=== PATIENT | female | born 1940 | race Caucasian/White ===

== ENCOUNTER 2016-04-23 10:25 | Outpatient (CLI) | payer MEDICARE ==
[2016-04-23 12:29] LABS: ALT (SGPT) 34 U/L (0-55); AST (SGOT) 28 U/L (5-34); Alkaline Phosphatase 102 U/L (40-150); Anion Gap 14 mmol/L (10-20); BUN (Urea Nitrogen) 12 mg/dL (9.8-20.1); Bilirubin, Direct 0.5 mg/dL (0.1-0.3); Bilirubin, Total 1.5 mg/dL (0.2-1.2); Calc. Creatinine Clearance 0 mL/min (70-130); Calcium 9.3 mg/dL (7.8-10.44); Carbon Dioxide 27 mmol/L (23-31); Chloride 101 mmol/L (98-107); Estimated GFR-MDRD 68; LDL Cholesterol, Calculated 80 mg/dL; Protein, Total 6.6 g/dL (5.8-8.1)
[2016-04-23 12:38] LABS: Bilirubin Negative (Negative); Blood, Urine Negative (Negative); Glucose, Urine (Dipstick) Negative (Negative); Ketone, Urine Trace mg/dL (Negative); Nitrite Negative (Negative); Protein, Urine (Dipstick) Negative (Neg-Trace)
[2016-04-23 12:45] LABS: Hemoglobin A1c 4.9 % (4.0-6.0)
[2016-04-23 12:50] LABS: Bacteria/HPF Rare-Few HPF (None Seen); RBC/HPF None Seen HPF (0-3); Squamous Epithelial 0-3 HPF (0-3)
[2016-04-23 13:10] LABS: #Basophils 0.1 thou/uL (0.0-0.2); #Eosinphils 0.2 thou/uL (0.0-0.7); #Lymphocytes 1.8 thou/uL (1.20-3.40); #Monocytes 0.5 thou/uL (0.11-0.59); #Neutrophils 2.6 thou/uL (1.40-6.50); %Basophils 1.1 % (0.0-1.0); %Eosinophils 3.5 % (0.0-10.0); %Lymphocytes 35.3 % (21.0-51.0); %Monocytes 9.6 % (0.0-10.0); Hematocrit 42.9 % (36.0-47.0); Mean Platelet Volume 6.3 fL (7.4-10.4); Red Blood Cell (RBC) Count 4.28 mill/uL (4.20-5.40); White Blood Cell (WBC) Count 5.1 thou/uL (4.8-10.8)
== END 2016-04-23 10:26 | disposition home or self-care (01) ==
LOC: NAVSJIPCSP 10:25
PROVIDERS: ATTEND Family Medicine
DX: N39.0 Urinary tract infection, site not specified (principal); D64.9 Anemia, unspecified; R94.5 Abnormal results of liver function studies; E78.5 Hyperlipidemia, unspecified; Z79.899 Other long term (current) drug therapy
CPT/HCPCS: 36415; 80048; 80061; 80076; 81003; 81015; 83036; 84443; 85025

== ENCOUNTER 2016-05-18 16:29 | Outpatient (CLI) | payer MEDICARE ==
[2016-05-18 16:48] LABS: Bilirubin Negative (Negative); Blood, Urine Negative (Negative); Glucose, Urine (Dipstick) Negative (Negative); Ketone, Urine Negative (Negative); Nitrite Negative (Negative); Protein, Urine (Dipstick) Negative (Neg-Trace); Urobilinogen 0.2 mg/dL (0.2-1.0)
[2016-05-18 16:59] LABS: Bacteria/HPF 2+ HPF (None Seen); RBC/HPF None Seen HPF (0-3)
== END 2016-05-18 16:30 | disposition home or self-care (01) ==
LOC: NAVSJIPCSP 16:29 → NAV LAB 16:30
PROVIDERS: ATTEND Family Medicine
DX: N39.0 Urinary tract infection, site not specified (principal)
CPT/HCPCS: 81003; 81015

== ENCOUNTER 2017-12-29 16:33 | Inpatient (IN) | payer MEDICARE ==
[2017-12-29 17:44] VITALS: BMI 44.8
[2017-12-29] MEDS ORDERED: PROVENTIL INHALER 6.7 G (200 INHALATIONS) INH PRN (17:53)
[2017-12-29] MEDS ORDERED: CRANBERRY EXTRACT 200 MG PO PRN (18:30)
[2017-12-29] MEDS: Mometasone/Formoterol 60 PUFF AER INH SCH (19:05)
[2017-12-29] MEDS ORDERED: Rivaroxaban 10 MG TAB PO SCH (21:00)
[2017-12-29] MEDS: DULoxetine 30 MG CAP PO SCH (21:16)
[2017-12-29] MEDS: Potassium Chloride 20 MEQ TAB PO SCH (21:16)
[2017-12-29] MEDS: Pramipexole Di-HCl 0.25 MG TAB PO SCH (21:17)
[2017-12-29] MEDS: Metoprolol Tartrate 25 MG TAB PO SCH (21:17)
[2017-12-29] MEDS: Atorvastatin Calcium 20 MG TAB PO SCH (21:17)
[2017-12-29] MEDS: Ciprofloxacin 500 MG TAB PO SCH (21:17)
[2017-12-29] MEDS: Amiodarone 200 MG TAB PO SCH (21:17)
[2017-12-29] MEDS: Ondansetron ODT 4 MG TAB PO PRN (22:13)
[2017-12-29] MEDS: Colchicine 0.6 MG TAB PO SCH (22:13)
--- NOTE | 2017-12-29 23:08 | HP ---
DATE OF ADMISSION: 12/29/2017 PATIENT OF: Negrito Elias MD CHIEF COMPLAINT: Severe weakness, shortness of breath, atrial fibrillation, and COPD. HISTORY OF PRESENT ILLNESS: The patient is a very pleasant 77-year-old white female with a long hist ory of COPD and atrial fibrillation with gradually increasing shortness of breath, who has been able to live independently up until approximately a month ago when she developed severe dizziness secondar y to otitis and vertigo. She was treated orally, but continued to have problems with weakness, dizzi ness, and increasing shortness of breath. She was seen by our Cardiology, who has felt that possibly her atrial fibrillation in addition to her COPD was causing her decreased exercise tolerance and she was elected to have an ablation. This was attempted on 12/23/2017 with only transient resolution of her atrial fibrillation and then recurrence, requiring institution of amiodarone therapy. This did convert her to normal sinus rhythm, but subsequently she became severely weak after being given a dos e of Ambien, developed an exacerbation of her COPD, as well as possible left upper lobe pneumonia. S he was started on Levaquin in addition to her nebulizer and appeared to slowly improve, but remained unable to maintain ADLs, and therefore was transferred to [facility] for continue d PT and OT. PAST MEDICAL HISTORY: As mentioned above is positive for a long-term atrial fibrillation; hypertensi on; COPD; obesity with a BMI of 44; and a peripheral neuropathy, not related to diabetes; as well as obstructive sleep apnea. 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 SOCIAL HISTORY: She is a . Lived with a smoker for many years, but never did smoke. ALLERGIES: She is allergic to NEXIUM, MAGNESIUM, CHLORPROMAZINE. PAST SURGICAL HISTORY: Positive for cholecystectomy, appendectomy, bilateral knee replacements, hyst erectomy, bunionectomy. MEDICATIONS: Her medications this time on transfer from [facility] included albuterol inhaler as n eeded, atorvastatin 20 daily, Dymista 23-gram spray pump each naris daily, Symbicort 160/4.5 two puff s twice daily, amiodarone 200 mg 3 times daily, colchicine 0.6 twice daily, furosemide 40 daily, pant oprazole 40 daily, K-Dur 20 daily, tramadol as needed, Xarelto 20 mg nightly, pramipexole 0.25 nightl y, KCl 10 mEq daily. Metoprolol and digoxin were given postoperatively and Cipro has been given for possible pneumonia. REVIEW OF SYSTEMS: HEENT: She has decreased hearing, but no change in vision. She does not normall y wear oxygen. She is on oxygen at this time. She has no hoarseness, sore throat. Pulmonary: She has shortness of breath on minimal exertion. She walks with a walker. Had been doing aqua therapy p rior to this admission because of low back pain and shortness of breath. Cardiovascular: She is den alice chest pain, palpitations, orthopnea, paroxysmal nocturnal dyspnea, edema, but does have palpitat ions. Gastrointestinal: She denies nausea, vomiting, diarrhea, constipation, abdominal pain. Genit ourinary: She denies dysuria, hematuria. She does have significant incontinence. Has been using ex ternal catheter. Musculoskeletal: She denies stiffness or swelling in her joints or extremities, bu t does have significant lower back pain. Neurologic: She has some mild right-sided weakness. PHYSICAL EXAMINATION: GENERAL: The patient is an obese white female, appears short of breath with minimal exertion. She i s oriented x3 and cooperative. Has decreased hearing. VITAL SIGNS: Blood pressure of 190/76, O2 sats 94% on 2 liters, respirations 20, pulse 59, afebrile. HEENT: Pupils are equal, round, and reactive to light and accommodation. Sclerae are anicteric. Co njunctivae are pale. Oral mucous membranes are well-hydrated. Ears showed bilateral crusting, but w ith no real tenderness around the ears. NECK: Supple. There are no nodes or masses. JVP is not elevated. LUNGS: Markedly decreased breath sounds with decreased air flow. No wheezes or rhonchi. CARDIAC: Regular rhythm. PMI in the fifth intercostal space midclavicular line. No S4. No other g allops or murmurs. ABDOMEN: Obese and nontender with no masses or organomegaly. SKIN AND EXTREMITIES: Display 1+ edema. No clubbing, cyanosis. NEUROLOGIC: Decreased sensation to pinprick bilaterally in the feet and mild right-sided weakness. LABORATORY AND X-RAY FINDINGS: Most recent laboratory showed white count of 6100, hematocrit 34, hem oglobin 11. Sodium 134, potassium 4, chloride 100, bicarbonate 26, BUN 18, creatinine 0.98, calcium 9, magnesium 1.9. TSH 1.88, T4 of 1.14, total bilirubin 1.3, AST 29, ALT 30. Echocardiogram showed ejection fraction 55%-60%, small pericardial effusion, no evidence of tamponade. CT of the chest anel wed no significant pericardial effusion, very small bilateral pleural effusions. ASSESSMENT: The patient is a 77-year-old white female with a history of hypertension, well controlle d; chronic obstructive pulmonary disease secondary to secondary smoke with significant dyspnea on min imal exertion and now at rest; atrial fibrillation, status post ablation, but with persistent diastol ic heart failure; severe deconditioning with inability to ambulate without assistance and with dyspne a on minimal exertion. PLAN: 1. Start PT/OT. 2. Attempt to wean off oxygen. Continue prehospitalization medications of Symbicort, albuterol, cip rofloxacin for COPD. 3. Continue metoprolol 25 twice daily, duloxetine 60 nightly, digoxin 0.125 daily, and colchicine 0. 6 twice daily for hypertension and to control atrial fibrillation and decrease inflammatory response in pericardium. 4. Stress ulcer prophylaxis. Continue full-dose anticoagulation with rivaroxaban 20 mg nightly.
[2017-12-30 05:03] LABS: #Basophils 0.1 thou/uL (0.0-0.2); #Eosinphils 0.3 thou/uL (0.0-0.7); #Lymphocytes 1.4 thou/uL (1.20-3.40); #Monocytes 1.2 thou/uL (0.11-0.59); #Neutrophils 5.4 thou/uL (1.40-6.50); %Basophils 1.1 % (0.0-1.0); %Eosinophils 3.6 % (0.0-10.0); %Lymphocytes 16.4 % (21.0-51.0); %Monocytes 13.9 % (0.0-10.0); %Neutrophils 65.1 % (42.0-75.0); Hemoglobin 10.3 g/dL (12.0-16.0); Mean Corpuscular HGB CONC 32.9 g/dL (32.0-36.0); Mean Corpuscular Hemoglobin 31.8 pg (27.0-31.0); Mean Corpuscular Volume 96.8 fL (78.0-98.0); Mean Platelet Volume 7.6 fL (7.4-10.4); Platelet Count 280 thou/uL (130-400); RBC Distribution Width 12.8 % (11.5-14.5); Red Blood Cell (RBC) Count 3.24 mill/uL (4.20-5.40); White Blood Cell (WBC) Count 8.4 thou/uL (4.8-10.8)
[2017-12-30 05:06] LABS: Manual Diff?? NO
[2017-12-30 05:07] LABS: MDiff Complete? YES
[2017-12-30 05:23] LABS: ALT (SGPT) 51 U/L (8-55); AST (SGOT) 37 U/L (5-34); Albumin 3.6 g/dL (3.4-4.8); Alkaline Phosphatase 191 U/L (40-150); Anion Gap 14 mmol/L (10-20); BUN (Urea Nitrogen) 19 mg/dL (9.8-20.1); Bilirubin, Total 1.1 mg/dL (0.2-1.2); Calc. Creatinine Clearance 81 mL/min (70-130); Calcium 9.5 mg/dL (7.8-10.44); Carbon Dioxide 26 mmol/L (23-31); Chloride 98 mmol/L (98-107); Estimated GFR-MDRD 51; Globulin 2.5 g/dL (2.4-3.5); Glucose 115 mg/dL (83-110); Potassium 4.3 mmol/L (3.5-5.1); Protein, Total 6.1 g/dL (6.0-8.3); Sodium 134 mmol/L (136-145)
[2017-12-30] MEDS: Mometasone/Formoterol 60 PUFF AER INH SCH ×2 (06:16→17:47)
[2017-12-30] MEDS: Ondansetron ODT 4 MG TAB PO PRN ×3 (06:19→20:19)
[2017-12-30] MEDS: Furosemide 40 MG TAB PO SCH (07:41)
[2017-12-30] MEDS: Colchicine 0.6 MG TAB PO SCH ×2 (10:27→20:22)
[2017-12-30] MEDS: Potassium Chloride 20 MEQ TAB PO SCH ×2 (10:28→20:19)
[2017-12-30] MEDS: Digoxin 0.125 MG TAB PO SCH (10:29)
[2017-12-30] MEDS: Metoprolol Tartrate 25 MG TAB PO SCH ×2 (10:33→20:20)
[2017-12-30] MEDS: Ciprofloxacin 500 MG TAB PO SCH ×2 (10:33→20:21)
[2017-12-30] MEDS: Amiodarone 200 MG TAB PO SCH ×3 (10:33→20:20)
[2017-12-30] MEDS: Acetaminophen 325 MG TAB PO PRN (16:08)
[2017-12-30] MEDS: Rivaroxaban 10 MG TAB PO SCH (17:48)
[2017-12-30] MEDS: Lisinopril 10 MG TAB PO SCH (20:21)
[2017-12-30] MEDS: Pramipexole Di-HCl 0.25 MG TAB PO SCH (20:21)
[2017-12-30] MEDS: DULoxetine 30 MG CAP PO SCH (20:22)
[2017-12-30] MEDS: Atorvastatin Calcium 20 MG TAB PO SCH (20:23)
--- NOTE | 2017-12-30 20:57 | PRG ---
DATE OF SERVICE: 12/30/2017 SUBJECTIVE: The patient has been cooperating with therapy, walking 50 feet today, but has had recurr ent nausea and headache and has had some mild loose stools. Denying any chest pain or heart palpitat ions. LABORATORY DATA: White count 8400, hematocrit 31, hemoglobin 10. Sodium 134, potassium 4.3, chlorid e 98, bicarbonate 26, BUN 19, creatinine 1.04, glucose 115, total bilirubin 1.1, AST 37, ALT 51, jeff line phosphatase 191. OBJECTIVE: VITAL SIGNS: O2 sats 94% on 2 liters, pulse 53 and regular, blood pressure 160/76. LUNGS: Clear with decreased breath sounds. CARDIAC: Shows regular rhythm, no S4. No gallops or murmurs. ABDOMEN: Obese and nontender. SKIN AND EXTREMITIES: Showed trace edema. NEUROLOGIC: Shows diffuse weakness. ASSESSMENT: 1. Resolved atrial fibrillation on amiodarone with sinus bradycardia. 2. Persistent hypertension on metoprolol and we will add lisinopril 10 mg nightly. 3. Severe deconditioning while cooperating with therapy. 4. Severe chronic obstructive pulmonary disease, stable on hand held nebulizers and will continue.
[2017-12-31] MEDS: Mometasone/Formoterol 60 PUFF AER INH SCH ×2 (06:30→17:39)
[2017-12-31] MEDS: Ondansetron ODT 4 MG TAB PO PRN ×3 (07:30→20:30)
[2017-12-31] MEDS: Furosemide 40 MG TAB PO SCH (07:32)
[2017-12-31] MEDS: Ciprofloxacin 500 MG TAB PO SCH ×2 (09:35→20:31)
[2017-12-31] MEDS: Metoprolol Tartrate 25 MG TAB PO SCH ×2 (09:35→20:32)
[2017-12-31] MEDS: Amiodarone 200 MG TAB PO SCH ×3 (09:35→20:31)
[2017-12-31] MEDS: Colchicine 0.6 MG TAB PO SCH ×2 (09:35→20:31)
[2017-12-31] MEDS: Potassium Chloride 20 MEQ TAB PO SCH ×2 (09:35→20:31)
[2017-12-31] MEDS: Acetaminophen 325 MG TAB PO PRN ×2 (09:35→17:38)
[2017-12-31] MEDS: Digoxin 0.125 MG TAB PO SCH (09:35)
[2017-12-31] MEDS: Rivaroxaban 10 MG TAB PO SCH (17:38)
[2017-12-31] MEDS: Atorvastatin Calcium 20 MG TAB PO SCH (20:31)
[2017-12-31] MEDS: DULoxetine 30 MG CAP PO SCH (20:31)
[2017-12-31] MEDS: Lisinopril 10 MG TAB PO SCH (20:32)
[2017-12-31] MEDS: Pramipexole Di-HCl 0.25 MG TAB PO SCH (20:32)
[2018-01-01] MEDS: Mometasone/Formoterol 60 PUFF AER INH SCH ×2 (06:18→17:22)
[2018-01-01] MEDS: Furosemide 40 MG TAB PO SCH (07:43)
[2018-01-01] MEDS: Ondansetron ODT 4 MG TAB PO PRN ×2 (07:44→20:08)
[2018-01-01] MEDS ORDERED: Loperamide HCl 2 MG CAP PO PRN ×2 (09:27→10:21)
[2018-01-01] MEDS: Metoprolol Tartrate 25 MG TAB PO SCH ×2 (09:53→20:10)
[2018-01-01] MEDS: Ciprofloxacin 500 MG TAB PO SCH ×2 (09:53→20:09)
[2018-01-01] MEDS: Potassium Chloride 20 MEQ TAB PO SCH (09:53)
[2018-01-01] MEDS: Amiodarone 200 MG TAB PO SCH ×3 (09:53→20:10)
[2018-01-01] MEDS: Colchicine 0.6 MG TAB PO SCH ×2 (09:53→20:10)
[2018-01-01 10:04] LABS: Digoxin 0.53 ng/mL (0.8-2.0)
[2018-01-01 10:05] LABS: Anion Gap 15 mmol/L (10-20); BUN (Urea Nitrogen) 15 mg/dL (9.8-20.1); Calc. Creatinine Clearance 88 mL/min (70-130); Calcium 9.3 mg/dL (7.8-10.44); Carbon Dioxide 22 mmol/L (23-31); Chloride 100 mmol/L (98-107); Estimated GFR-MDRD 57; Glucose 140 mg/dL (83-110); Potassium 3.5 mmol/L (3.5-5.1); Sodium 133 mmol/L (136-145)
[2018-01-01] MEDS: Digoxin 0.125 MG TAB PO SCH (10:35)
[2018-01-01] MEDS: Acetaminophen 325 MG TAB PO PRN (10:37)
--- NOTE | 2018-01-01 15:01 | PRG ---
DATE OF SERVICE: 01/01/2018 SUBJECTIVE: Ms. Rasheed is doing well except she did have about 3 episodes of diarrhea last night a nd one this morning. Stool was sent for C. diff and she was given one dose of Imodium and it seems t o be helping. No other concerns or questions except she hates her potassium pill. She agrees to jailene e it in the liquid form. OBJECTIVE: VITAL SIGNS: She is afebrile, heart rate is 57, respirations 20, oxygen saturation 94% on 2 liters, blood pressure 139/66. CARDIOVASCULAR SYSTEM: S1, S2 plus. RESPIRATORY SYSTEM: Normal vesicular breath sounds. ABDOMEN: Soft, nontender, bowel sounds heard in all quadrants, obese. EXTREMITIES: Without cyanosis or clubbing. Trace edema. LABORATORY DATA: Sodium is 133, potassium 3.5, BUN and creatinine is 15 and 0.95, digoxin is 0.53. IMPRESSION: 1. Atrial fibrillation, now in sinus rhythm. 2. Chronic obstructive pulmonary disease, now requiring oxygen. 3. Hypertension, well controlled. 4. Peripheral neuropathy. 5. Obstructive sleep apnea. 6. History of cerebrovascular accident in the past with minimal right-sided deficits. PLAN: 1. Change potassium to liquid form. 2. Continue current medications. 3. Heart healthy diet. 4. Monitor heart rate and rhythm. 5. Titrate oxygen. 6. Breathing treatment. 7. Nocturnal CPAP. 8. Routine laboratory values. 9. Discussed with nursing in detail. All questions answered.
[2018-01-01] MEDS: Rivaroxaban 10 MG TAB PO SCH (17:21)
[2018-01-01] MEDS: Lisinopril 10 MG TAB PO SCH (20:09)
[2018-01-01] MEDS: Pramipexole Di-HCl 0.25 MG TAB PO SCH (20:10)
[2018-01-01] MEDS: Atorvastatin Calcium 20 MG TAB PO SCH (20:10)
[2018-01-01] MEDS: DULoxetine 30 MG CAP PO SCH (20:10)
[2018-01-02] MEDS: Mometasone/Formoterol 60 PUFF AER INH SCH ×2 (05:46→17:47)
[2018-01-02] MEDS: Furosemide 40 MG TAB PO SCH (07:48)
[2018-01-02] MEDS: Ondansetron ODT 4 MG TAB PO PRN ×2 (07:48→20:17)
[2018-01-02] MEDS: Colchicine 0.6 MG TAB PO SCH ×2 (09:14→20:19)
[2018-01-02] MEDS: Amiodarone 200 MG TAB PO SCH ×3 (09:14→20:18)
[2018-01-02] MEDS: Ciprofloxacin 500 MG TAB PO SCH ×2 (09:14→20:18)
[2018-01-02] MEDS: Metoprolol Tartrate 25 MG TAB PO SCH ×2 (09:15→20:20)
[2018-01-02] MEDS: Digoxin 0.125 MG TAB PO SCH (09:15)
[2018-01-02] MEDS: Rivaroxaban 10 MG TAB PO SCH (17:12)
[2018-01-02] MEDS: Acetaminophen 325 MG TAB PO PRN (17:12)
[2018-01-02] MEDS: Atorvastatin Calcium 20 MG TAB PO SCH (20:19)
[2018-01-02] MEDS: DULoxetine 30 MG CAP PO SCH (20:19)
[2018-01-02] MEDS: Lisinopril 10 MG TAB PO SCH (20:20)
[2018-01-02] MEDS: Pramipexole Di-HCl 0.25 MG TAB PO SCH (20:20)
[2018-01-03] MEDS: Ondansetron ODT 4 MG TAB PO PRN ×3 (03:41→14:31)
[2018-01-03] MEDS: Mometasone/Formoterol 60 PUFF AER INH SCH ×2 (06:17→17:37)
[2018-01-03] MEDS: Furosemide 40 MG TAB PO SCH (07:39)
[2018-01-03] MEDS: Metoprolol Tartrate 25 MG TAB PO SCH ×2 (09:12→21:00)
[2018-01-03] MEDS: Ciprofloxacin 500 MG TAB PO SCH ×2 (09:12→21:00)
[2018-01-03] MEDS: Colchicine 0.6 MG TAB PO SCH ×2 (09:12→21:03)
[2018-01-03] MEDS: Amiodarone 200 MG TAB PO SCH ×3 (09:15→21:00)
[2018-01-03] MEDS: Digoxin 0.125 MG TAB PO SCH (09:15)
[2018-01-03] MEDS: Acetaminophen 325 MG TAB PO PRN (14:31)
[2018-01-03] MEDS: Rivaroxaban 10 MG TAB PO SCH (17:36)
[2018-01-03] MEDS: Lisinopril 10 MG TAB PO SCH (20:59)
[2018-01-03] MEDS: DULoxetine 30 MG CAP PO SCH (21:00)
[2018-01-03] MEDS: Pramipexole Di-HCl 0.25 MG TAB PO SCH (21:01)
[2018-01-03] MEDS: Atorvastatin Calcium 20 MG TAB PO SCH (21:01)
--- NOTE | 2018-01-03 22:24 | PRG ---
DATE OF SERVICE: 01/03/2018 HISTORY OF PRESENT ILLNESS: Ms. Rasheed is a very pleasant 77-year-old white female that awakened a bout a week and a half ago with vertigo and dizziness. She was treated but continued to have weaknes s and dizziness and developed some shortness of breath. She was evaluated by Cardiology and found to be in atrial fibrillation and along with her COPD, thought that might be the cause of her extreme we akness. She had an elective ablation, which was transient. She required amiodarone after it recurre d. This converted back to normal sinus rhythm, but she is significantly weak. She developed exacerb ation of her COPD and the left upper lobe pneumonia. She eventually was started on Levaquin and mireles sferred to [facility] for physical therapy and occupational therapy. SUBJECTIVE: The patient states she is feeling slightly better and walked but had to stop multiple ti mes to rest. She has no complaints today. PHYSICAL EXAMINATION: VITAL SIGNS: Today reveal blood pressure 130/66, pulse 55-61, respirations 20, O2 saturation 97% on room air, T-max 98.4. GENERAL: This is a well-developed, well-nourished, very pleasant, slightly obese white female in no apparent distress at this time. HEENT: Reveals normocephalic, nontraumatic cranium. The pupils are equally round. Extraocular move ments intact. Nose and throat are slightly dry, but clear. NECK: Supple, without mass, nodes or bruits. LUNGS: Chest reveals no rales, rhonchi, or wheezes. No cough is noted this time. The patient obvio usly is breathing much better than when she was admitted. CARDIOVASCULAR: Heart reveals a regular rate and rhythm, which is very distant. No S3 or S4 is note d. No murmurs, gallops or rubs are noted. ABDOMEN: Obese, soft, nontender, without organomegaly, normal bowel sounds are noted. No rebound or guarding is noted. : Deferred. EXTREMITIES: Reveal 1+ edema. No clubbing, cyanosis otherwise is noted. NEUROLOGIC: The patient is oriented to person, place, and time at this time. IMPRESSION: 1. Hypertension. 2. Chronic obstructive pulmonary disease. 3. Atrial fibrillation, recently cardioverted, ablated and now on amitriptyline. 4. Diastolic heart failure. 5. Generalized weakness. 6. Anemia. 7. History of multiple urinary tract infections. 8. Hyperlipidemia. 9. Reflux. 10. Rheumatoid arthritis. 11. Anxiety depressive disorder. 12. Generalized weakness. PLAN: 1. Continue physical therapy and occupational therapy. 2. Wean the patient off her oxygen as well as possible. 3. Stop Colchicine 0.6 mg a day. 4. Continue other medications. 5. Follow the patient to make sure she does not develop diarrhea from the Colchicine.
[2018-01-04] MEDS: Ondansetron ODT 4 MG TAB PO PRN ×2 (03:55→20:46)
[2018-01-04] MEDS: Mometasone/Formoterol 60 PUFF AER INH SCH ×2 (06:23→18:15)
[2018-01-04] MEDS: Amiodarone 200 MG TAB PO SCH ×3 (08:24→20:43)
[2018-01-04] MEDS: Furosemide 40 MG TAB PO SCH (08:24)
[2018-01-04] MEDS: Ciprofloxacin 500 MG TAB PO SCH ×2 (08:24→20:43)
[2018-01-04] MEDS: Metoprolol Tartrate 25 MG TAB PO SCH ×2 (08:24→20:44)
[2018-01-04] MEDS: Digoxin 0.125 MG TAB PO SCH (08:24)
--- NOTE | 2018-01-04 10:14 | PRG ---
DATE OF SERVICE: 01/04/2018 HISTORY OF PRESENT ILLNESS: Ms. Rasheed is a well-developed, well-nourished, slightly obese 77-year -old white female that was seen by Dr. Wen and admitted to the hospital in atrial fibrillation. S he also had COPD and pneumonia. She had an elective ablation which was only transient. She had to b e started on amiodarone and then was stabilized. She was transferred to [facility] or physical therapy and occupational therapy. The patient states she feels okay this morning, but she had a little diarrhea this morning. She had not had another bowel movement before then in 1-2 days. She has no other complaints today and states she is eating. She is just very weak. PHYSICAL EXAMINATION: VITAL SIGNS: Today reveal blood pressure 165/70, pulse 60, respirations 20, O2 saturation 97% on garima m air, T-max 98.4. GENERAL: This is a well-developed, well-nourished, very weak white female in no apparent distress at this time. HEENT: Reveals normocephalic, nontraumatic cranium. Pupils are equally round and reactive. Extraoc ular movements intact. Nose and throat are slightly dry, but clear. NECK: Supple, without mass, nodes or bruits. LUNGS: Chest is clear to auscultation. No rales, no rhonchi, no wheezes or cough is heard. CARDIOVASCULAR: Reveals a regular rate and rhythm without murmurs, gallops or rubs. ABDOMEN: Soft, nontender, without organomegaly. Normal bowel sounds are noted. No rebound or guard ing is noted. : Deferred. EXTREMITIES: Reveal 1+ edema. No clubbing or cyanosis is noted. NEUROLOGIC: The patient is oriented to person, place, time and situation. IMPRESSION: 1. Hypertension. 2. Chronic obstructive pulmonary disease. 3. Atrial fibrillation with a recent cardioversion ablation and now on amiodarone. 4. Diastolic heart failure. 5. Generalized weakness. 6. Anemia. 7. Hyperlipidemia. 8. Reflux. 9. Rheumatoid arthritis. 10. Anxiety depressive disorder. 11. Generalized weakness. PLAN: 1. Continue to monitor the patient's blood pressure closely. 2. Continue to monitor the patient's respiratory status. 3. Colchicine was stopped. 4. Continue present medications. 5. Monitor the patient's rate for RVR. 6. Stress ulcer prophylaxis: None. 7. Decubitus precautions. 8. DVT prophylaxis. 9. Continue physical therapy and occupational therapy.
[2018-01-04] MEDS: Rivaroxaban 10 MG TAB PO SCH (17:13)
[2018-01-04] MEDS: Lisinopril 10 MG TAB PO SCH (20:43)
[2018-01-04] MEDS: DULoxetine 30 MG CAP PO SCH (20:43)
[2018-01-04] MEDS: Acetaminophen 325 MG TAB PO PRN (20:44)
[2018-01-04] MEDS: Pramipexole Di-HCl 0.25 MG TAB PO SCH (20:44)
[2018-01-04] MEDS: Atorvastatin Calcium 20 MG TAB PO SCH (20:44)
[2018-01-05] MEDS: Mometasone/Formoterol 60 PUFF AER INH SCH ×2 (05:54→18:45)
[2018-01-05] MEDS: Furosemide 40 MG TAB PO SCH (08:39)
[2018-01-05] MEDS: Ciprofloxacin 500 MG TAB PO SCH ×2 (08:39→21:05)
[2018-01-05] MEDS: Metoprolol Tartrate 25 MG TAB PO SCH ×2 (08:39→21:05)
[2018-01-05] MEDS: Amiodarone 200 MG TAB PO SCH ×3 (08:40→21:05)
[2018-01-05] MEDS: Digoxin 0.125 MG TAB PO SCH (08:40)
[2018-01-05] MEDS: Acetaminophen 325 MG TAB PO PRN (12:04)
[2018-01-05] MEDS: Rivaroxaban 10 MG TAB PO SCH (17:19)
[2018-01-05] MEDS: DULoxetine 30 MG CAP PO SCH (21:05)
[2018-01-05] MEDS: Pramipexole Di-HCl 0.25 MG TAB PO SCH (21:05)
[2018-01-05] MEDS: Lisinopril 10 MG TAB PO SCH (21:05)
[2018-01-05] MEDS: Atorvastatin Calcium 20 MG TAB PO SCH (21:05)
--- NOTE | 2018-01-05 22:33 | PRG ---
DATE OF SERVICE: 01/05/2018 DATE OF ADMISSION: 12/29/2017 SUBJECTIVE: Ms. Rasheed is well-developed, somewhat obese 77-year-old white female admitted to [facility] by Dr. Wen. She was in atrial fibrillation and had COPD along with pneumonia. Sh marilyn had an elective ablation, which was transit had to be started on amiodarone. She was stabilized an d transferred to [place] for PT and OT. The patient is found lying in bed and had a long talk with the patient's daughter, Sandie Price. Unfortunately, the patient is relaxing days ago and not very motivated to get up and go. I tried to motivate her this morning and told her we need to really get her up and going. She states she just f eels tired all the time and she may be somewhat depressed also. OBJECTIVE: VITAL SIGNS: This morning reveal blood pressure is 158/65, pulse 64 to 58, respirations 20, O2 sat 9 6% to 97% on room air, T-max 98.0. GENERAL: This is a well-developed, well-nourished, very pleasant, obese white female in no apparent distress at this time. HEENT: Reveals normocephalic, nontraumatic cranium. Pupils equal, round, and reactive. Extraocular movements intact. The nose and throat are still dry. NECK: Supple without mass, nodes, or bruits. CHEST: Clear to auscultation. No rales, rhonchi, wheezes, or cough is heard. HEART: Reveals a regular rate and rhythm without murmurs, gallops, or rubs today. ABDOMEN: Soft, nontender without organomegaly. Normal bowel sounds are noted. Bowel sounds are not ed to be normal in all four quadrants. No rebound or guarding is noted. : Deferred. EXTREMITIES: Reveal +1 edema. No clubbing, cyanosis is otherwise noted. NEUROLOGIC: Patient is oriented to person, place, time, and situation. IMPRESSION: 1. Hypertension. 2. Chronic obstructive pulmonary disease. 3. Atrial fibrillation with recent cardioversion and ablation and now on amiodarone. 4. Diastolic heart failure. 5. Generalized weakness. 6. Anemia. 7. Hyperlipidemia. 8. Reflux. 9. Rheumatoid arthritis. 10. Anxiety depressive disorder. 11. Generalized weakness. PLAN: 1. Continue to monitor the patient's blood pressure closely. 2. Continue to really encourage this patient to get out and do some physical therapy and occupationa l therapy. 3. Continue to monitor the patient's respiratory status. 4. Colchicine was stopped 2 days ago. 5. Continue other present medications. 6. Monitor the patient's rate for RVR. 7. Stress ulcer prophylaxis. 8. Decubitus precautions. 9. Deep venous thrombosis prophylaxis. 10. Continue physical therapy and occupational therapy.
[2018-01-06 05:26] LABS: Hemoglobin 10.7 g/dL (12.0-16.0); Platelet Count 326 thou/uL (130-400)
[2018-01-06] MEDS: Mometasone/Formoterol 60 PUFF AER INH SCH ×2 (06:24→17:17)
[2018-01-06] MEDS: Furosemide 40 MG TAB PO SCH (07:44)
[2018-01-06] MEDS: Ondansetron ODT 4 MG TAB PO PRN ×2 (08:50→19:21)
[2018-01-06] MEDS: Digoxin 0.125 MG TAB PO SCH (09:28)
[2018-01-06] MEDS: Amiodarone 200 MG TAB PO SCH ×2 (09:29→20:44)
[2018-01-06] MEDS: Metoprolol Tartrate 25 MG TAB PO SCH ×2 (09:29→20:44)
[2018-01-06] MEDS: Ciprofloxacin 500 MG TAB PO SCH ×2 (09:29→20:44)
[2018-01-06] MEDS: Acetaminophen 325 MG TAB PO PRN (15:44)
[2018-01-06] MEDS: Rivaroxaban 10 MG TAB PO SCH (17:18)
[2018-01-06] MEDS ORDERED: Acetaminophen 325 MG TAB PO PRN (17:37)
[2018-01-06] MEDS ORDERED: Acetaminophen 500 MG TAB PO PRN (17:45)
[2018-01-06] MEDS: Acetaminophen 500 MG TAB PO PRN (19:21)
[2018-01-06] MEDS: Lisinopril 10 MG TAB PO SCH (20:43)
[2018-01-06] MEDS: DULoxetine 30 MG CAP PO SCH (20:43)
[2018-01-06] MEDS: Pramipexole Di-HCl 0.25 MG TAB PO SCH (20:43)
[2018-01-06] MEDS: Atorvastatin Calcium 20 MG TAB PO SCH (20:43)
--- NOTE | 2018-01-06 22:13 | PRG ---
DATE OF SERVICE: 01/06/2018 HISTORY OF PRESENT ILLNESS: Ms. Rasheed is a very pleasant 77-year-old somewhat obese white female that was initially transferred to [facility] under the care of Dr. Wen with atrial fib, C OPD exacerbation, and pneumonia. She was having an elective ablation. Unfortunately, it was only te mporarily successful and the patient had to be started on amiodarone. She eventually was stabilized and transferred to [facility] for PT and OT to increase her strength and stamina. PHYSICAL EXAMINATION: VITAL SIGNS: Today reveal blood pressure this morning 139/61, pulse 60 to 63, respirations 20, O2 sa t 95% on room air, T-max 98.7. GENERAL: This is a well-developed, obese white female in no apparent distress at this time. HEENT: Reveals normocephalic, nontraumatic cranium. Pupils are equally round and reactive. Extraoc ular movements intact. Nose and throat are slight dry, but clear. NECK: Supple without mass, nodes, or bruits. CHEST: Clear to auscultation. No rales, rhonchi, wheezes, or cough is heard. CARDIOVASCULAR: Reveals a regular rate and rhythm without murmurs, gallops, or rubs. ABDOMEN: Soft, nontender without organomegaly, normal bowel sounds are noted. No rebound or guardin g is noted. : Deferred. EXTREMITIES: Reveal no clubbing, cyanosis with trace edema. NEURO: Patient is oriented to person, place, and time. The patient states she feels much better today and she felt like getting up and walking and did a goo d job today. IMPRESSION: 1. Hypertension. 2. Chronic obstructive pulmonary disease. 3. Atrial fibrillation with recent cardioversion and ablation, now on amiodarone. 4. Diastolic heart failure. 5. Generalized weakness. 6. Anemia. 7. Hyperlipidemia. 8. Reflux. 9. Rheumatoid arthritis. 10. Anxiety depressive disorder. 11. Generalized weakness. PLAN: 1. Continue to monitor the patient's blood pressure closely. 2. Encourage the patient to continue to sit up out of bed and walk and exercise much as possible. 3. Continue to monitor the patient's respiratory status. 4. Patient's colchicine for pericarditis was stopped 2 days ago. 5. Continue present medications. 6. We will continue to monitor the patient for RVR. 7. Stress ulcer prophylaxis. 8. Decubitus precautions. 9. Deep venous thrombosis prophylaxis. 10. Continue PT and OT.
[2018-01-07] MEDS: Mometasone/Formoterol 60 PUFF AER INH SCH ×2 (05:59→17:40)
[2018-01-07] MEDS: Furosemide 40 MG TAB PO SCH (07:42)
[2018-01-07] MEDS: Ondansetron ODT 4 MG TAB PO PRN ×3 (07:42→20:18)
[2018-01-07] MEDS: Digoxin 0.125 MG TAB PO SCH (09:35)
[2018-01-07] MEDS: Amiodarone 200 MG TAB PO SCH ×2 (09:35→20:49)
[2018-01-07] MEDS: Ciprofloxacin 500 MG TAB PO SCH ×2 (09:35→20:49)
[2018-01-07] MEDS: Metoprolol Tartrate 25 MG TAB PO SCH ×2 (09:36→20:50)
[2018-01-07] MEDS: Rivaroxaban 10 MG TAB PO SCH (17:40)
--- NOTE | 2018-01-07 18:31 | PRG ---
DATE OF SERVICE: 01/07/2018. HISTORY OF PRESENT ILLNESS: Ms. Rasheed is a very pleasant 77-year-old white female transferred to [facility] under the care of Dr. Wen with atrial fib, COPD exacerbation, and pneumonia. She had an elective ablation which eventually was only temporary. She had to be started on amiodaron e. She eventually was stabilized and transferred to [facility] for PT and OT to incr ease her strength and stamina. SUBJECTIVE: The patient states she did better today, but she still got very tired. Her stamina is n ot very good, but is slowly improving. OBJECTIVE: VITAL SIGNS: Reveals blood pressure 145/73, pulse 64, respirations 20, O2 sat 96% on room air, T-max 98.3. GENERAL: This is a well-developed, well-nourished, very pleasant white female, in no apparent distre ss. HEENT: Reveals normocephalic, nontraumatic cranium. Pupils equal, round, and reactive. Extraocular movements intact. Nose and throat are still dry. NECK: Supple, without mass, nodes, bruits. LUNGS: Chest is clear but distant. The patient is a little dyspneic today, but no rales, rhonchi or wheezes are heard. Rare cough is noted. HEART: Reveals a regular rate and rhythm without murmurs, gallops or rubs. ABDOMEN: Soft, nontender, without organomegaly, normal bowel sounds are noted. No rebound or guardi ng is noted. : Deferred. EXTREMITIES: Reveal no clubbing, cyanosis or edema. NEUROLOGIC: Patient is oriented to person, place, and time. IMPRESSION: 1. Hypertension. 2. Chronic obstructive pulmonary disease. 3. Atrial fibrillation with recent cardioversion and ablation, now back on amiodarone. 4. Diastolic heart failure. 5. Generalized weakness. 6. Anemia. 7. Hyperlipidemia. 8. Gastroesophageal reflux. 9. Rheumatoid arthritis. 10. Anxiety disorder. 11. Significant generalized weakness which is slowly improving. PLAN: 1. Monitor the patient's blood pressure closely. 2. Encourage the patient to get up out of bed and sit in a chair and get more exercise and stay out of bed. 3. Continue to monitor the patient's respiratory status. 4. Continue present meds. 5. Continue to monitor the patient for RVR. 6. Stress ulcer prophylaxis. 7. Decubitus precautions. 8. Deep venous thrombosis prophylaxis. 9. Continue PT and OT.
[2018-01-07] MEDS: Acetaminophen 500 MG TAB PO PRN (19:28)
[2018-01-07] MEDS: DULoxetine 30 MG CAP PO SCH (20:49)
[2018-01-07] MEDS: Pramipexole Di-HCl 0.25 MG TAB PO SCH (20:50)
[2018-01-07] MEDS: Atorvastatin Calcium 20 MG TAB PO SCH (20:50)
[2018-01-07] MEDS: Lisinopril 10 MG TAB PO SCH (20:50)
[2018-01-08 05:34] LABS: Hemoglobin 10.2 g/dL (12.0-16.0); Platelet Count 313 thou/uL (130-400)
[2018-01-08] MEDS: Mometasone/Formoterol 60 PUFF AER INH SCH ×2 (05:47→17:43)
[2018-01-08] MEDS: Ondansetron ODT 4 MG TAB PO PRN ×2 (07:46→15:36)
[2018-01-08] MEDS: Furosemide 40 MG TAB PO SCH (07:47)
[2018-01-08] MEDS: Azelastine/Fluticasone [Dymista Nasal Spray] 1 SPRAY EA NARE PRN (07:47)
[2018-01-08] MEDS: Metoprolol Tartrate 25 MG TAB PO SCH ×2 (09:35→21:35)
[2018-01-08] MEDS: Digoxin 0.125 MG TAB PO SCH (09:35)
[2018-01-08] MEDS: Ciprofloxacin 500 MG TAB PO SCH ×2 (09:35→21:36)
[2018-01-08] MEDS: Amiodarone 200 MG TAB PO SCH ×2 (09:36→21:36)
[2018-01-08] MEDS: Acetaminophen 500 MG TAB PO PRN (09:36)
--- NOTE | 2018-01-08 12:10 | PRG ---
DATE OF SERVICE: 01/08/2018 SUBJECTIVE: The patient is sitting up in the chair, feels better off oxygen now and is walking in e marley 280 feet with persistent but decreased dyspnea on exertion. She is complaining of some mild c onstipation and is requesting stool softener. She is also complaining of some nausea, indigestion at night that waking her. LABORATORY: Hemoglobin 10.2, hematocrit 32, creatinine 1.01. Digoxin level 0.53. OBJECTIVE: VITAL SIGNS: Show her to have blood pressure 124/79, pulse 70, O2 sats 95% on room air, CPAP at nigh t. LUNGS: Show markedly decreased breath sounds, no rales or rhonchi. CARDIAC: Shows regular rhythm. No gallops or murmurs. ABDOMEN: Soft and nontender. ASSESSMENT: 1. The patient is a very pleasant 77-year-old white female with a history of chronic atrial fibrilla tion with recent cardioversion on amiodarone. 2. Diastolic heart failure, appears to be stable. 3. Chronic obstructive pulmonary disease and obstructive sleep apnea with severe dyspnea on exertion , but now is not requiring oxygen and is having increasing exercise tolerance. 4. Generalized weakness, improving daily. 5. Hypokalemia supplemental potassium and we will recheck today. 6. Mild constipation. We will start on stool softener.
[2018-01-08 14:52] LABS: #Basophils 0.1 thou/uL (0.0-0.2); #Lymphocytes 1.3 thou/uL (1.20-3.40); #Monocytes 1.2 thou/uL (0.11-0.59); #Neutrophils 5.6 thou/uL (1.40-6.50); %Basophils 1.2 % (0.0-1.0); %Eosinophils 0.6 % (0.0-10.0); %Lymphocytes 15.4 % (21.0-51.0); %Monocytes 14.3 % (0.0-10.0); %Neutrophils 68.4 % (42.0-75.0); Hemoglobin 10.9 g/dL (12.0-16.0); Mean Corpuscular Hemoglobin 31.2 pg (27.0-31.0); Mean Corpuscular Volume 97.6 fL (78.0-98.0); Mean Platelet Volume 7.5 fL (7.4-10.4); Platelet Count 377 thou/uL (130-400); RBC Distribution Width 13.2 % (11.5-14.5); White Blood Cell (WBC) Count 8.2 thou/uL (4.8-10.8)
[2018-01-08 15:06] LABS: ALT (SGPT) 30 U/L (8-55); AST (SGOT) 26 U/L (5-34); Albumin 3.7 g/dL (3.4-4.8); Alkaline Phosphatase 131 U/L (40-150); Anion Gap 16 mmol/L (10-20); BUN (Urea Nitrogen) 11 mg/dL (9.8-20.1); Bilirubin, Total 1.3 mg/dL (0.2-1.2); Calc. Creatinine Clearance 71 mL/min (70-130); Carbon Dioxide 24 mmol/L (23-31); Chloride 99 mmol/L (98-107); Estimated GFR-MDRD 44; Globulin 2.6 g/dL (2.4-3.5); Glucose 125 mg/dL (83-110); Potassium 3.9 mmol/L (3.5-5.1); Protein, Total 6.3 g/dL (6.0-8.3); Sodium 135 mmol/L (136-145)
[2018-01-08] MEDS: traMADol HCl 50 MG TAB PO PRN (15:35)
[2018-01-08] MEDS: Rivaroxaban 10 MG TAB PO SCH (17:43)
[2018-01-08] MEDS: Atorvastatin Calcium 20 MG TAB PO SCH (21:35)
[2018-01-08] MEDS: Lisinopril 10 MG TAB PO SCH (21:35)
[2018-01-08] MEDS: DULoxetine 30 MG CAP PO SCH (21:35)
[2018-01-08] MEDS: Docusate 100 MG CAP PO SCH (21:36)
[2018-01-08] MEDS: Pramipexole Di-HCl 0.25 MG TAB PO SCH (21:36)
[2018-01-09] MEDS: Ondansetron ODT 4 MG TAB PO PRN ×2 (03:50→09:30)
[2018-01-09] MEDS: Mometasone/Formoterol 60 PUFF AER INH SCH ×2 (06:26→17:48)
[2018-01-09] MEDS: Azelastine/Fluticasone [Dymista Nasal Spray] 1 SPRAY EA NARE PRN (06:30)
[2018-01-09] MEDS: Furosemide 40 MG TAB PO SCH (07:57)
--- NOTE | 2018-01-09 08:58 | PRG ---
DATE OF SERVICE: 01/09/2018 SUBJECTIVE: The patient feels well except for complaints of constipation and abdominal distress. No shortness of breath, no chest pain. Has not been ambulating with no therapy today, but no symptoms at rest. OBJECTIVE: Shows, VITAL SIGNS: Blood pressure 124/79, pulse 76, respirations 22, O2 sats 94% on room air. LUNGS: Tray ar. CARDIAC EXAMINATION: Shows regular rhythm. ABDOMEN: Soft and nontender. SKIN AND EXTREMITIES: Show no edema, clubbing, cyanosis. ASSESSMENT: 1. Recurrent constipation despite stool softener and we will give her magnesium citrate today. 2. Atrial fibrillation, status post cardioversion and control with amiodarone. 3. Diastolic heart failure, stable. 4. Chronic obstructive pulmonary disease, stable off oxygen. 5. Severe deconditioning, improving with therapy and ready for therapy tomorrow. PLAN: Magnesium citrate today. Physical therapy and occupational therapy tomorrow. Continue Lasix. Furosemide daily.
[2018-01-09] MEDS: Amiodarone 200 MG TAB PO SCH ×2 (09:30→20:48)
[2018-01-09] MEDS: Docusate 100 MG CAP PO SCH ×2 (09:30→20:48)
[2018-01-09] MEDS: Metoprolol Tartrate 25 MG TAB PO SCH ×2 (09:30→20:48)
[2018-01-09] MEDS: Digoxin 0.125 MG TAB PO SCH (09:30)
[2018-01-09] MEDS: Ciprofloxacin 500 MG TAB PO SCH ×2 (09:30→20:47)
[2018-01-09] MEDS ORDERED: Magnesium Citrate 300 ML BOT PO SCH ×2 (11:00→14:30)
[2018-01-09] MEDS: Rivaroxaban 10 MG TAB PO SCH (17:48)
[2018-01-09] MEDS: traMADol HCl 50 MG TAB PO PRN (20:46)
[2018-01-09] MEDS: Pramipexole Di-HCl 0.25 MG TAB PO SCH (20:47)
[2018-01-09] MEDS: DULoxetine 30 MG CAP PO SCH (20:47)
[2018-01-09] MEDS: Lisinopril 10 MG TAB PO SCH (20:48)
[2018-01-09] MEDS: Atorvastatin Calcium 20 MG TAB PO SCH (20:48)
[2018-01-10] MEDS: Ondansetron ODT 4 MG TAB PO PRN ×3 (00:49→17:42)
[2018-01-10 05:25] LABS: Hemoglobin 11.1 g/dL (12.0-16.0); Platelet Count 328 thou/uL (130-400)
[2018-01-10] MEDS: Mometasone/Formoterol 60 PUFF AER INH SCH ×2 (06:15→20:09)
[2018-01-10] MEDS: Azelastine/Fluticasone [Dymista Nasal Spray] 1 SPRAY EA NARE PRN (06:17)
[2018-01-10] MEDS: Furosemide 40 MG TAB PO SCH (07:33)
[2018-01-10] MEDS: Acetaminophen 500 MG TAB PO PRN (07:33)
[2018-01-10] MEDS: Amiodarone 200 MG TAB PO SCH ×2 (09:14→21:24)
[2018-01-10] MEDS: Ciprofloxacin 500 MG TAB PO SCH ×2 (09:14→21:24)
[2018-01-10] MEDS: Digoxin 0.125 MG TAB PO SCH (09:15)
[2018-01-10] MEDS: Docusate 100 MG CAP PO SCH ×2 (09:15→21:24)
[2018-01-10] MEDS: Metoprolol Tartrate 25 MG TAB PO SCH ×2 (09:16→21:24)
[2018-01-10] MEDS: Rivaroxaban 10 MG TAB PO SCH (17:35)
--- NOTE | 2018-01-10 18:20 | PRG ---
DATE OF SERVICE: 01/10/2018 Ms. Rasheed is a very pleasant 77-year-old white female transferred to [facility] under the care of Dr. Wen with atrial fibrillation, COPD exacerbation, pneumonia. She had an elective abla tion done, which unfortunately lasted just a short period of time. She had to be started on amiodaro ne, eventually stabilized, and transferred to [facility] for PT and OT to increase he r strength and stamina. SUBJECTIVE: The patient states she did well and had a good weekend. She has no complaints today. H er daughter is trying to get her moved into [facility] on [address]. Hopefully, by the end of , we can get the paperwork done. OBJECTIVE: VITAL SIGNS: Today, revealed blood pressure 146/67, pulse 60-78, respirations 18-22, O2 sat 90%-93% on room air, T-max 98. GENERAL: This is a well-developed, well-nourished, very pleasant white female in no apparent distres s at this time. HEENT: Normocephalic, nontraumatic cranium. Pupils equally round and reactive. Extraocular movemen ts intact. Nose and throat are still slightly dry. NECK: Supple without mass, nodes, or bruits. CHEST: Clear to auscultation. No rales, rhonchi, or wheezes are heard. Rare cough is noted. HEART: Regular rate and rhythm without murmurs, gallops, or rubs. ABDOMEN: Soft, nontender, and obese. No organomegaly is noted. Normal bowel sounds are noted in al l 4 quadrants. No rebound or guarding is noted. GENITOURINARY: Deferred. EXTREMITIES: No clubbing, cyanosis, or edema. NEUROLOGIC: The patient is oriented to person, place, and time. LABORATORY DATA: Today reveals hemoglobin 9.1, hematocrit 35.5, platelet count is 328,000. Creatini ne 0.99, GFR is 54. IMPRESSION: 1. Hypertension. 2. Chronic obstructive pulmonary disease. 3. Atrial fibrillation with recent cardioversion and ablation, now back on amiodarone. 4. Diastolic heart failure. 5. Generalized weakness. 6. Anemia. 7. Hyperlipidemia. 8. Gastroesophageal reflux. 9. Rheumatoid arthritis. 10. Anxiety disorder. 11. Significant generalized weakness, which is slowly improving. PLAN: 1. Continue to monitor the patient's blood pressure closely. 2. Encourage the patient to get out of bed as much as possible. 3. Continue to monitor the patient's respiratory status. 4. Monitor the patient for RVR. 5. Stress ulcer prophylaxis. 6. Decubitus precautions. 7. Deep venous thrombosis prophylaxis. 8. Continue physical therapy and occupational therapy. 9. Expect discharge on or Wednesday.
[2018-01-10] MEDS ORDERED: Fleet Enema 133 ML BOT FS SCH (21:15)
[2018-01-10] MEDS: Polyethylene Glycol 3350 17 GM Packet PO SCH ×2 (21:23)
[2018-01-10] MEDS: DULoxetine 30 MG CAP PO SCH (21:24)
[2018-01-10] MEDS: Lisinopril 10 MG TAB PO SCH (21:24)
[2018-01-10] MEDS: Pramipexole Di-HCl 0.25 MG TAB PO SCH (21:24)
[2018-01-10] MEDS: Atorvastatin Calcium 20 MG TAB PO SCH (21:24)
[2018-01-10] MEDS ORDERED: Bisacodyl 10 MG SUPP PR SCH (22:00)
[2018-01-11] MEDS: Ondansetron ODT 4 MG TAB PO PRN ×3 (02:33→22:57)
[2018-01-11] MEDS ORDERED: Bisacodyl 10 MG SUPP ONE (04:53)
[2018-01-11] MEDS: Mometasone/Formoterol 60 PUFF AER INH SCH ×2 (05:34→17:27)
[2018-01-11] MEDS: Amiodarone 200 MG TAB PO SCH ×2 (08:47→20:28)
[2018-01-11] MEDS: Metoprolol Tartrate 25 MG TAB PO SCH ×2 (08:47→20:28)
[2018-01-11] MEDS: Digoxin 0.125 MG TAB PO SCH (08:47)
[2018-01-11] MEDS: Docusate 100 MG CAP PO SCH ×2 (08:47→20:28)
[2018-01-11] MEDS: Furosemide 40 MG TAB PO SCH (08:47)
[2018-01-11] MEDS: Ciprofloxacin 500 MG TAB PO SCH ×2 (08:47→20:28)
[2018-01-11] MEDS: Polyethylene Glycol 3350 17 GM Packet PO SCH ×2 (08:48→20:29)
[2018-01-11] MEDS ORDERED: Lisinopril 10 MG TAB PO SCH ×2 (10:00)
--- NOTE | 2018-01-11 11:42 | RAD ---
FRONTAL VIEW ABDOMEN KUB: Date: 01/11/18 INDICATION: Constipation. FINDINGS: There is a large volume of retained fecal material throughout the colon. No free air is visualized. N o evidence of a mechanical bowel obstruction. There are calcific densities overlying the left upper q uadrant, not further characterized. Hyperdensity also seen laterally overlying the right abdomen. Met allic clips are present, which may relate to prior cholecystectomy. Correlate with surgical history. Scattered osseous degenerative change. IMPRESSION: Large volume retained fecal material compatible with constipation. POS: C
--- NOTE | 2018-01-11 13:19 | PRG ---
DATE OF SERVICE: 01/11/2018 HISTORY OF PRESENT ILLNESS: The patient is a very pleasant 77-year-old white female that initially p resented to [facility] under the care of Dr. Wen with atrial fib, COPD exacerbation, pnbi beltrán. She had an elective ablation done which did not last. She had to be started on amiodarone, e ventually was stabilized and transferred to [facility] for extreme weakness. She is here for PT and OT to increase her strength and her stamina. The patient states she is constipated and she had Milk of Magnesia last night and MiraLax. She yesy nues to feel constipated and had a flat plate of the abdomen this morning revealed retained fecal st ool all throughout the colon. I did talk with her daughter, Sandie Price, and the plan is to have her accepted to [facility] [employer] this Wednesday. We will continue to strive towards that goal. VITAL SIGNS: Today reveal blood pressure 157/67, pulse 66, respirations 20, O2 sat 95% on room air. The patient's blood pressure has been up and we did increase her lisinopril to 10 mg b.i.d. PHYSICAL EXAMINATION: GENERAL: This is a well-developed, well-nourished, very pleasant white female in no apparent distres s at this time. HEENT: Reveals normocephalic, nontraumatic cranium. Pupils equal, round, and reactive. Extraocular movements intact. Nose and throat are slightly dry, but clear. NECK: Supple, without mass, nodes or bruits. CHEST: Clear to auscultation. No rales, rhonchi or wheezes are heard. CARDIOVASCULAR: Reveals a regular rate and rhythm without murmurs, gallops or rubs. ABDOMEN: Soft, obese, nontender, without organomegaly, normal bowel sounds are noted. No rebound or guarding is noted. : Deferred. EXTREMITIES: Reveal no clubbing, cyanosis or edema. NEUROLOGIC: Patient is oriented to person, place, and time. IMPRESSION: 1. Constipation. 2. Hypertension. 3. Chronic obstructive pulmonary disease. 4. Atrial fibrillation with recent cardioversion back on amiodarone. 5. Diastolic heart failure. 6. Generalized weakness. 7. Anemia. 8. Hyperlipidemia. 9. Gastroesophageal reflux. 10. Rheumatoid arthritis. 11. Anxiety disorder. PLAN: 1. Continue to monitor the patient's blood pressure closely. 2. We will try to get the patient to have a bowel movement. 3. Out of bed as much as possible. 4. Continue to monitor the patient's respiratory status. 5. Monitor the patient for RVR. 6. Discussed with the patient eating well and exercising well at length and getting out of bed when she goes home. 7. Decubitus precautions. 8. Deep venous thrombosis prophylaxis. 9. Expect discharge most likely on Wednesday. 10. Continue physical therapy and occupational therapy.
[2018-01-11] MEDS ORDERED: Magnesium Citrate 300 ML BOT PO SCH (15:00)
[2018-01-11] MEDS: Rivaroxaban 10 MG TAB PO SCH (17:28)
[2018-01-11] MEDS: traMADol HCl 50 MG TAB PO PRN (19:36)
[2018-01-11] MEDS: DULoxetine 30 MG CAP PO SCH (20:28)
[2018-01-11] MEDS: Atorvastatin Calcium 20 MG TAB PO SCH (20:29)
[2018-01-11] MEDS: Lisinopril 10 MG TAB PO SCH (20:29)
[2018-01-11] MEDS: Pramipexole Di-HCl 0.25 MG TAB PO SCH (20:29)
[2018-01-12 05:39] LABS: Hemoglobin 11.1 g/dL (12.0-16.0); Platelet Count 366 thou/uL (130-400)
[2018-01-12] MEDS ORDERED: risperiDONE 0.5 MG TAB ONE ×3 (06:14→20:36)
[2018-01-12] MEDS: Mometasone/Formoterol 60 PUFF AER INH SCH ×2 (06:18→17:40)
[2018-01-12] MEDS ORDERED: risperiDONE 0.25 MG TAB PO SCH (06:45)
[2018-01-12] MEDS: Furosemide 40 MG TAB PO SCH (07:38)
[2018-01-12] MEDS: Polyethylene Glycol 3350 17 GM Packet PO SCH ×2 (09:49→20:55)
[2018-01-12] MEDS: Ondansetron ODT 4 MG TAB PO PRN (09:51)
[2018-01-12] MEDS: Metoprolol Tartrate 25 MG TAB PO SCH ×2 (09:51→20:52)
[2018-01-12] MEDS: Docusate 100 MG CAP PO SCH ×2 (09:52→20:52)
[2018-01-12] MEDS: Lisinopril 10 MG TAB PO SCH ×2 (09:52→20:54)
[2018-01-12] MEDS: Ciprofloxacin 500 MG TAB PO SCH ×2 (09:52→20:52)
[2018-01-12] MEDS: Amiodarone 200 MG TAB PO SCH ×2 (09:52→20:52)
[2018-01-12] MEDS: Digoxin 0.125 MG TAB PO SCH (09:52)
[2018-01-12] MEDS ORDERED: GoLYTELY 4,000 ml Bottle PO SCH (10:00)
[2018-01-12] MEDS ORDERED: Tuberculin PPD 0.1 ML VIAL I-DERMAL SCH (12:00)
[2018-01-12] MEDS ORDERED: Tuberculin PPD 0.1 ML VIAL ONE (12:51)
--- NOTE | 2018-01-12 17:12 | PRG ---
DATE OF SERVICE: 01/12/2018 DATE OF ADMISSION: 12/29/2017 HISTORY OF PRESENT ILLNESS: Ms. Rasheed is a very pleasant 77-year-old white female who presented t [facility] with atrial fib, COPD, pneumonia. She had an elective ablation done which was only temporary. She had to be started on amiodarone and has been stabilized and transferred to [facility] because of extreme weakness and she would significantly benefit from physical t herapy and occupational therapy. She is here to increase her strength and stamina and she is doing much better. SUBJECTIVE: The patient this morning states she has had some confusion and some hallucinations. She also was very constipated. We had to have mag citrate yesterday and finally she has had multiple krishna wel movements today. She feels much better and she took a 3-hour nap this afternoon with her CPAP on . She feels much better and is alert and oriented x3 at this time. We did discuss her going to [facility] on Wednesday. We will continue to strive towards that goal. OBJECTIVE: VITAL SIGNS: This morning reveal blood pressure 102/52, pulse 64, respirations 18, O2 sat 94% on garima m air team. GENERAL: This is a well-developed, well-nourished, obese white female in no apparent distress at thi s time. HEENT: Reveals normocephalic, nontraumatic cranium. Pupils are equally round and reactive. Nose an d throat are moist today. NECK: Supple, without mass, nodes, bruits. CHEST: Clear to auscultation. No rales, rhonchi, wheezes or cough is heard. HEART: Reveals a regular rate and rhythm without murmurs, gallops or rubs. ABDOMEN: Obese, soft, nontender, without organomegaly, normal bowel sounds are noted. No rebound or guarding is noted. : Deferred. EXTREMITIES: Reveal no clubbing, cyanosis or edema. NEUROLOGIC: The patient is oriented to person, place, and time. IMPRESSION: 1. Constipation. 2. Hypertension. 3. Chronic obstructive pulmonary disease. 4. Atrial fibrillation with a recent cardioversion. 5. Diastolic heart failure. 6. Generalized weakness. 7. Anemia. 8. Gastroesophageal reflux disease. 9. Rheumatoid arthritis. 10. Hyperlipidemia. 11. Anxiety disorder. PLAN: 1. Continue to monitor the patient's blood pressure. 2. Continue to monitor the patient's fluid. 3. Monitor the patient for constipation. 4. Monitor the patient's respiratory status. 5. Monitor the patient for RVR. 6. Stress ulcer precautions. 7. Decubitus precautions. 8. Deep venous thrombosis prophylaxis. 9. Discharge likely on Wednesday. 10. Continue physical therapy and occupational therapy. 11. Lab tomorrow.
[2018-01-12] MEDS: Rivaroxaban 10 MG TAB PO SCH (17:40)
[2018-01-12] MEDS: DULoxetine 30 MG CAP PO SCH (20:52)
[2018-01-12] MEDS: Atorvastatin Calcium 20 MG TAB PO SCH (20:52)
[2018-01-12] MEDS: Pramipexole Di-HCl 0.25 MG TAB PO SCH (20:54)
[2018-01-12] MEDS: risperiDONE 0.25 MG TAB PO SCH (20:55)
[2018-01-13] MEDS: Mometasone/Formoterol 60 PUFF AER INH SCH ×2 (05:20→17:55)
[2018-01-13 05:34] LABS: #Basophils 0.1 thou/uL (0.0-0.2); #Eosinphils 0.2 thou/uL (0.0-0.7); #Lymphocytes 1.4 thou/uL (1.20-3.40); #Neutrophils 3.8 thou/uL (1.40-6.50); %Basophils 1.2 % (0.0-1.0); %Eosinophils 3.1 % (0.0-10.0); %Lymphocytes 21.6 % (21.0-51.0); %Monocytes 14.8 % (0.0-10.0); %Neutrophils 59.2 % (42.0-75.0); Hemoglobin 9.9 g/dL (12.0-16.0); Mean Corpuscular HGB CONC 32.2 g/dL (32.0-36.0); Mean Corpuscular Hemoglobin 30.9 pg (27.0-31.0); Mean Corpuscular Volume 95.9 fL (78.0-98.0); Mean Platelet Volume 6.8 fL (7.4-10.4); Platelet Count 315 thou/uL (130-400); RBC Distribution Width 13.2 % (11.5-14.5); Red Blood Cell (RBC) Count 3.21 mill/uL (4.20-5.40); White Blood Cell (WBC) Count 6.4 thou/uL (4.8-10.8)
[2018-01-13 05:58] LABS: Anion Gap 12 mmol/L (10-20); Globulin 2.3 g/dL (2.4-3.5)
[2018-01-13 06:02] LABS: ALT (SGPT) 19 U/L (8-55); AST (SGOT) 19 U/L (5-34); Albumin 3.2 g/dL (3.4-4.8); Alkaline Phosphatase 94 U/L (40-150); BUN (Urea Nitrogen) 17 mg/dL (9.8-20.1); Bilirubin, Total 1.1 mg/dL (0.2-1.2); Calc. Creatinine Clearance 51 mL/min (70-130); Carbon Dioxide 27 mmol/L (23-31); Chloride 97 mmol/L (98-107); Estimated GFR-MDRD 30; Glucose 114 mg/dL (83-110); Potassium 4.1 mmol/L (3.5-5.1); Protein, Total 5.5 g/dL (6.0-8.3); Sodium 132 mmol/L (136-145)
[2018-01-13] MEDS: Furosemide 40 MG TAB PO SCH (07:55)
[2018-01-13] MEDS: Polyethylene Glycol 3350 17 GM Packet PO SCH ×2 (09:17→20:23)
[2018-01-13] MEDS: Docusate 100 MG CAP PO SCH ×2 (09:19→20:23)
[2018-01-13] MEDS: Ciprofloxacin 500 MG TAB PO SCH ×2 (09:19→20:23)
[2018-01-13] MEDS: Digoxin 0.125 MG TAB PO SCH (09:20)
[2018-01-13] MEDS: Amiodarone 200 MG TAB PO SCH ×2 (09:20→20:23)
[2018-01-13] MEDS: Lisinopril 10 MG TAB PO SCH ×2 (09:21→20:23)
[2018-01-13] MEDS: Metoprolol Tartrate 25 MG TAB PO SCH ×2 (09:21→20:23)
[2018-01-13] MEDS ORDERED: risperiDONE 0.5 MG TAB ONE (09:54)
[2018-01-13] MEDS: risperiDONE 0.25 MG TAB PO SCH (10:09)
[2018-01-13] MEDS ORDERED: Lidocaine 5% Patch TD SCH (10:45)
[2018-01-13] MEDS ORDERED: Lidocaine Patch Removal 1 EACH TOP SCH (10:45)
[2018-01-13] MEDS ORDERED: READ PPD TEST SITE PO SCH (12:00)
[2018-01-13] MEDS: Rivaroxaban 10 MG TAB PO SCH (17:53)
--- NOTE | 2018-01-13 18:54 | PRG ---
DATE OF SERVICE: 01/13/2018 HISTORY OF PRESENT ILLNESS: Ms. Rasheed is a pleasant 77-year-old white female who presented to [facility] with atrial fib, COPD, and pneumonia. She had an elective ablation done which was o nly worked temporarily. She had to be started on amiodarone and there was stabilized and transferred to [facility] for extreme weakness. She was here for physical therapy and occupatio nal therapy. The patient states she is doing much better. She is not hearing or seeing things there anymore. She is not having more delusions or hallucinations. We will discharge her on Risperdal 0.25 mg twice a day. PHYSICAL EXAMINATION: VITAL SIGNS: Blood pressure this morning 123/56, pulse 62, respirations 18, O2 sat 92% on room air. GENERAL: This is a well-developed, well-nourished, somewhat obese white female in no apparent distre ss at this time. HEENT: Reveals normocephalic, nontraumatic cranium. Pupils are equally round and reactive. Extraoc ular movements intact. Nose and throat are slightly dry, but clear. NECK: Supple, without mass, nodes or bruits. CHEST: Clear to auscultation. No rales, rhonchi, wheezes or cough is heard. HEART: Reveals a regular rate and rhythm without murmurs, gallops or rubs. ABDOMEN: Soft, nontender, without organomegaly, normal bowel sounds are noted. No rebound or guardi ng is noted. : Deferred. EXTREMITIES: Reveal no clubbing, cyanosis or edema. NEUROLOGIC: Patient is oriented to person, place, and time today. She is not having more delusions or hallucinations. IMPRESSION: 1. Constipation, resolved. 2. Hypertension, stable. 3. Chronic obstructive pulmonary disease, stable. 4. Atrial fibrillation with recent cardioversion, now on amiodarone. 5. Diastolic heart failure. 6. Generalized weakness. 7. Anemia. 8. Gastroesophageal reflux disease. 9. Rheumatoid arthritis. 10. Hyperlipidemia. 11. Anxiety disorder. PLAN: 1. The patient is planning to be discharged tomorrow to [facility]. 2. Continue Risperdal 0.25 b.i.d. 3. Continue present medications. 4. Continue to monitor the patient for constipation. 5. Continue to monitor the patient for RVR. 6. Stress ulcer prophylaxis. 7. Decubitus precautions. 8. Out of bed as much as possible. 9. DVT thrombosis prophylaxis. 10. Discharge tomorrow. 11. Continue PT and OT through [facility].
[2018-01-13] MEDS: DULoxetine 30 MG CAP PO SCH (20:22)
[2018-01-13] MEDS: Atorvastatin Calcium 20 MG TAB PO SCH (20:23)
[2018-01-13] MEDS: Pramipexole Di-HCl 0.25 MG TAB PO SCH (20:23)
[2018-01-13] MEDS: risperiDONE 0.5 MG TAB PO SCH (20:24)
[2018-01-14] MEDS: Mometasone/Formoterol 60 PUFF AER INH SCH (05:29)
[2018-01-14 05:33] LABS: Eosinophils 1 % (0-10); Hemoglobin 9.8 g/dL (12.0-16.0); Lymphocytes 28 % (21-51); MDiff Complete? YES; Mean Corpuscular HGB CONC 31.1 g/dL (32.0-36.0); Mean Corpuscular Hemoglobin 30.5 pg (27.0-31.0); Mean Corpuscular Volume 98.1 fL (78.0-98.0); Mean Platelet Volume 6.5 fL (7.4-10.4); Monocytes 13 % (0-10); Neutrophil 58 % (42-75); PLT Morphology Comment Appears Adequate; Platelet Count 324 thou/uL (130-400); RBC Distribution Width 13.8 % (11.5-14.5); RBC Morphology Normal; White Blood Cell (WBC) Count 6.9 thou/uL (4.8-10.8)
[2018-01-14 05:38] LABS: Digoxin 1.72 ng/mL (0.8-2.0)
[2018-01-14 05:40] LABS: Anion Gap 12 mmol/L (10-20); BUN (Urea Nitrogen) 23 mg/dL (9.8-20.1); Calc. Creatinine Clearance 42 mL/min (70-130); Calcium 9.4 mg/dL (7.8-10.44); Carbon Dioxide 28 mmol/L (23-31); Chloride 97 mmol/L (98-107); Estimated GFR-MDRD 24; Glucose 119 mg/dL (83-110); Potassium 4.5 mmol/L (3.5-5.1); Sodium 132 mmol/L (136-145)
[2018-01-14] MEDS: Furosemide 40 MG TAB PO SCH (08:25)
[2018-01-14] MEDS: Docusate 100 MG CAP PO SCH (09:23)
[2018-01-14] MEDS: Lisinopril 10 MG TAB PO SCH (09:23)
[2018-01-14] MEDS: Polyethylene Glycol 3350 17 GM Packet PO SCH (09:23)
[2018-01-14] MEDS: Ciprofloxacin 500 MG TAB PO SCH (09:24)
[2018-01-14] MEDS: Amiodarone 200 MG TAB PO SCH (09:24)
[2018-01-14] MEDS: Metoprolol Tartrate 25 MG TAB PO SCH (09:24)
[2018-01-14] MEDS: risperiDONE 0.5 MG TAB PO SCH (09:25)
[2018-01-14] MEDS: Digoxin 0.125 MG TAB PO SCH (09:25)
[2018-01-14] MEDS ORDERED: Furosemide 20 MG TAB PO SCH (10:00)
[2018-01-14 13:04] VITALS: BP 112/52; TEMP 98
--- NOTE | 2018-01-14 13:06 | DIS ---
DATE OF ADMISSION: 12/29/2017 DATE OF DISCHARGE: 01/14/2018 HISTORY: Mrs. Varela is a very pleasant 77-year-old white female that was seen at [facility] a nd admitted to the hospital, followed by Dr. Wen. Ablation was done, which was only temporary. S he was started on amiodarone and was noted be very weak, was transferred to [facility]. She also had pneumonia. She is now off her Cipro. DISCHARGE MEDICATIONS: 1. Tylenol 1000 q.6 hours p.r.n. 2. Albuterol 2 puffs inhaler q.4 hours p.r.n. 3. Amiodarone 200 mg daily. 4. Atorvastatin 40 mg a day. 5. Dymista 1 spray each nostril twice a day. 6. Symbicort 160/4.5 one puff inhaled twice a day. 7. Cymbalta 60 mg at bedtime. 8. Digoxin 0.125 mg daily. 9. Lasix 20 mg daily. 10. Metoprolol tartrate 25 mg b.i.d. 11. Multivitamin daily which is Ocuvite eye plus multi tablet. 12. Pantoprazole, Protonix 40 mg daily. 13. MiraLax 17 grams b.i.d. 14. Potassium 10 mEq daily. 15. Pramipexole 0.5 mg at bedtime. 16. Xarelto 20 mg at bedtime. 17. Nasacort 2 sprays each nostril q.a.m. 18. Risperdal 0.25 mg twice a day. 19. Tramadol q.6 hours p.r.n. PHYSICAL EXAMINATION: VITAL SIGNS: Today reveal blood pressure 155/67, pulse 54-55, respirations 20, O2 sat 95% on room ai r. T-max 98.6. GENERAL: This is a well-developed, well-nourished, obese white female in no apparent distress at thi s time. HEENT: Reveals normocephalic, nontraumatic cranium. Pupils are equally round and reactive. Extraoc ular movements intact. Nose and throat are slightly dry. NECK: Supple, without mass, nodes, bruits. CHEST: Clear to auscultation. No rales, rhonchi or wheezes are heard. HEART: Regular rate and rhythm without murmur, gallops or rubs. ABDOMEN: Soft, nontender, without organomegaly. Obese. No rebound or guarding is noted. GENITOURINARY: Deferred. EXTREMITIES: Reveals no clubbing, cyanosis or edema. SKIN: Right arm TB skin test is negative. NEUROLOGIC: The patient is oriented to person, place and time. She is not having delusions or hallu cinations. IMPRESSION: 1. Atrial fibrillation, recent cardioversion, now on amiodarone 200 mg daily. 2. Chronic obstructive pulmonary disease. 3. Hypertension. 4. Diastolic heart failure. 5. Anemia. 6. Gastroesophageal reflux disease. 7. Rheumatoid arthritis. 8. Constipation. 9. Hyperlipidemia. 10. Anxiety depressive disorder. 11. Generalized weakness. PLAN: 1. The patient to be discharged to [facility] today. She will continue previous me dicines as noted above. 2. We will continue to monitor the patient for constipation. 3. Continue to monitor the patient for RVR. 4. Stress ulcer prophylaxis. 5. Decubitus precautions. 6. Out of bed as much as possible. 7. Deep venous thrombosis prophylaxis. 8. Continue physical therapy and occupational therapy through [facility].
[2018-01-15] MEDS ORDERED: Furosemide 20 MG TAB PO SCH (07:30)
[2018-01-15] MEDS ORDERED: Potassium Chloride 10 MEQ TAB PO SCH (08:00)
[2018-01-20] MEDS ORDERED: Amiodarone 200 MG TAB PO SCH (09:00)
== END 2018-01-14 13:33 | disposition home health service (06) | DRG 948 ==
LOC: NAV ACUTE 16:33
PROVIDERS: ADMIT Family Medicine; ATTEND Internal Medicine
DX: R53.1 Weakness (principal); Z68.41 Body mass index [BMI] 40.0-44.9, adult; I69.351 Hemiplegia and hemiparesis following cerebral infarction affecting right dominant side; I50.30 Unspecified diastolic (congestive) heart failure; E66.9 Obesity, unspecified; J44.9 Chronic obstructive pulmonary disease, unspecified; D64.9 Anemia, unspecified; K21.9 Gastro-esophageal reflux disease without esophagitis; M06.9 Rheumatoid arthritis, unspecified; K59.00 Constipation, unspecified; E78.5 Hyperlipidemia, unspecified; F41.8 Other specified anxiety disorders; G47.33 Obstructive sleep apnea (adult) (pediatric); G62.9 Polyneuropathy, unspecified; Z87.01 Personal history of pneumonia (recurrent); I48.2 Chronic atrial fibrillation; E87.6 Hypokalemia; I11.0 Hypertensive heart disease with heart failure
CPT/HCPCS: 36415; 74018; 80048; 80053; 80162; 82565; 83880; 85014; 85018; 85025; 85049; 86580; 87324; 87449; 94664; Q0162

== ENCOUNTER 2018-01-25 14:48 | Outpatient (CLI) | payer MEDICARE ==
[2018-01-25 15:33] LABS: #Basophils 0.1 thou/uL (0.0-0.2); #Eosinphils 0.3 thou/uL (0.0-0.7); #Lymphocytes 1.3 thou/uL (1.20-3.40); #Neutrophils 5.5 thou/uL (1.40-6.50); %Basophils 0.8 % (0.0-1.0); %Eosinophils 3.2 % (0.0-10.0); %Lymphocytes 16.5 % (21.0-51.0); %Neutrophils 67.6 % (42.0-75.0); Hemoglobin 10.9 g/dL (12.0-16.0); Mean Corpuscular HGB CONC 30.9 g/dL (32.0-36.0); Mean Corpuscular Hemoglobin 30.2 pg (27.0-31.0); Mean Corpuscular Volume 97.6 fL (78.0-98.0); Mean Platelet Volume 6.9 fL (7.4-10.4); Platelet Count 312 thou/uL (130-400); RBC Distribution Width 13.8 % (11.5-14.5); Red Blood Cell (RBC) Count 3.62 mill/uL (4.20-5.40); White Blood Cell (WBC) Count 8.1 thou/uL (4.8-10.8)
[2018-01-25 15:47] LABS: ALT (SGPT) 16 U/L (8-55); AST (SGOT) 21 U/L (5-34); Albumin 3.8 g/dL (3.4-4.8); Alkaline Phosphatase 112 U/L (40-150); Anion Gap 15 mmol/L (10-20); BUN (Urea Nitrogen) 11 mg/dL (9.8-20.1); Bilirubin, Total 1.2 mg/dL (0.2-1.2); Calc. Creatinine Clearance 0 mL/min (70-130); Calcium 9.5 mg/dL (7.8-10.44); Carbon Dioxide 27 mmol/L (23-31); Chloride 102 mmol/L (98-107); Estimated GFR-MDRD 56; Globulin 2.7 g/dL (2.4-3.5); Glucose 109 mg/dL (83-110); Potassium 3.8 mmol/L (3.5-5.1); Protein, Total 6.5 g/dL (6.0-8.3); Sodium 140 mmol/L (136-145)
[2018-01-25 16:05] LABS: Digoxin 1.29 ng/mL (0.8-2.0)
== END 2018-01-25 14:49 | disposition home or self-care (01) ==
LOC: NAV LAB 14:48
PROVIDERS: ATTEND Family Medicine
DX: E78.5 Hyperlipidemia, unspecified (principal); D64.9 Anemia, unspecified; J44.9 Chronic obstructive pulmonary disease, unspecified; I50.32 Chronic diastolic (congestive) heart failure; Z79.899 Other long term (current) drug therapy
CPT/HCPCS: 36415; 80053; 80162; 83880; 85025

== ENCOUNTER 2018-03-22 12:51 | Outpatient (CLI) | payer MEDICARE ==
[2018-03-22 14:27] LABS: #Basophils 0.1 thou/uL (0.0-0.2); #Eosinphils 0.6 thou/uL (0.0-0.7); #Lymphocytes 1.6 thou/uL (1.20-3.40); #Neutrophils 4.4 thou/uL (1.40-6.50); %Eosinophils 7.3 % (0.0-10.0); %Lymphocytes 21.1 % (21.0-51.0); %Monocytes 13.1 % (0.0-10.0); %Neutrophils 57.5 % (42.0-75.0); Mean Corpuscular HGB CONC 31.7 g/dL (32.0-36.0); Mean Corpuscular Volume 94.6 fL (78.0-98.0); Mean Platelet Volume 6.7 fL (7.4-10.4); Platelet Count 262 thou/uL (130-400); Red Blood Cell (RBC) Count 3.35 mill/uL (4.20-5.40); White Blood Cell (WBC) Count 7.6 thou/uL (4.8-10.8)
[2018-03-22 15:24] LABS: Anion Gap 17 mmol/L (10-20); BUN (Urea Nitrogen) 6 mg/dL (9.8-20.1); Calc. Creatinine Clearance 0 mL/min (70-130); Calcium 9.9 mg/dL (7.8-10.44); Carbon Dioxide 28 mmol/L (23-31); Chloride 99 mmol/L (98-107); Estimated GFR-MDRD 50; Glucose 86 mg/dL (83-110); Potassium 3.9 mmol/L (3.5-5.1); Sodium 140 mmol/L (136-145)
[2018-03-22 18:57] LABS: Bilirubin Negative (Negative); Blood, Urine Negative (Negative); Clarity Clear (Clear); Glucose, Urine (Dipstick) Negative (Negative); Leukocyte Small (Negative); Nitrite Negative (Negative); Protein, Urine (Dipstick) Negative (Neg-Trace); Specific Gravity, Urine 1.015 (1.005-1.030); Urobilinogen 0.2 mg/dL (0.2-1.0)
[2018-03-22 19:41] LABS: Bacteria/HPF None Seen HPF (None Seen); RBC/HPF 0-3 HPF (0-3); Squamous Epithelial 0-3 HPF (0-3); WBC/HPF None Seen HPF (0-3)
== END 2018-03-22 12:52 | disposition home or self-care (01) ==
LOC: NAV LAB 12:51
PROVIDERS: ATTEND Family Medicine
DX: D64.9 Anemia, unspecified (principal); N39.0 Urinary tract infection, site not specified; J00 Acute nasopharyngitis [common cold]; I50.32 Chronic diastolic (congestive) heart failure; Z79.899 Other long term (current) drug therapy
CPT/HCPCS: 36415; 80048; 81003; 81015; 83880; 85025; 87077; 87086; 87186

== ENCOUNTER 2020-06-28 16:44 | Outpatient (CLI) | payer MEDICARE | END 2020-06-28 16:45 | disposition home or self-care (01) | LOC: NAV RAD 16:44 | PROVIDERS: ATTEND Family Medicine | DX: M25.572 Pain in left ankle and joints of left foot (principal) ==

== ENCOUNTER 2022-10-11 12:22 | Inpatient (IN) | payer MEDICARE ==
[2022-10-11] MEDS ORDERED: traMADol HCl 50 MG TAB PO PRN (16:02)
[2022-10-11] MEDS ORDERED: Cyclobenzaprine 10 MG TAB PO PRN (16:02)
[2022-10-11] MEDS ORDERED: Ventolin HFA Inhaler 60 PUFF INHALER INH PRN (16:02)
[2022-10-11] MEDS ORDERED: Ondansetron ODT 4 MG TAB SL PRN (16:08)
[2022-10-11] MEDS ORDERED: Bisacodyl 5 MG TAB PO PRN (16:08)
[2022-10-11 20:08] VITALS: BMI 34.9
[2022-10-11] MEDS ORDERED: Non-Formulary Item 1 EACH (Olmesartan Medoxomil [Benicar] 40 MG Tablet) PO SCH (21:00)
[2022-10-11] MEDS ORDERED: Carbidopa/Levodopa 25-100 mg Tablet PO SCH (21:00)
[2022-10-11] MEDS: Guaifenesin DM 100-10/5 ML UDCUP PO SCH (21:01)
[2022-10-11] MEDS: Polyethylene Glycol OPTH DROP 15 ML BOT EA EYE SCH (21:01)
[2022-10-11] MEDS: Mometasone/Formoterol 200/5 60 PUFF INH SCH (21:02)
[2022-10-11] MEDS: rOPINIRole HCl 1 MG TAB PO SCH (21:02)
[2022-10-11] MEDS: risperiDONE 0.25 MG TAB PO SCH (21:03)
[2022-10-11] MEDS: Carbidopa/Levodopa 25-100 mg Tablet PO SCH (21:03)
[2022-10-11] MEDS: Famotidine 20 MG TAB PO SCH (21:03)
[2022-10-12] MEDS: Acetaminophen 325 MG TAB PO SCH ×4 (04:45→17:41)
[2022-10-12 06:07] LABS: #Basophils 0.1 thou/uL (0.0-0.2); #Eosinphils 1.6 thou/uL (0.0-0.7); #Lymphocytes 1.1 thou/uL (1.20-3.40); #Monocytes 0.8 thou/uL (0.11-0.59); #Neutrophils 4.9 thou/uL (1.40-6.50); %Basophils 0.7 % (0.0-1.0); %Eosinophils 18.4 % (0.0-10.0); %Lymphocytes 13.5 % (21.0-51.0); %Monocytes 9.4 % (0.0-10.0); %Neutrophils 58.1 % (42.0-75.0); Hemoglobin 8.7 g/dL (12.0-16.0); Mean Corpuscular HGB CONC 30.3 g/dL (32.0-36.0); Mean Corpuscular Hemoglobin 29.1 pg (27.0-31.0); Mean Corpuscular Volume 96.1 fl (78.0-98.0); Mean Platelet Volume 5.7 fL (7.4-10.4); Platelet Count 408 10x3/uL (130-400); RBC Distribution Width 16.8 % (11.5-14.5); Red Blood Cell (RBC) Count 2.99 mill/uL (4.20-5.40); White Blood Cell (WBC) Count 8.5 10x3/uL (4.8-10.8)
[2022-10-12 06:18] LABS: ALT (SGPT) Less than 7 U/L (8-55); AST (SGOT) 12 U/L (5-34); Albumin 3.5 g/dL (3.4-4.8); Alkaline Phosphatase 130 U/L (40-110); Anion Gap 10 mmol/L (10-20); BUN (Urea Nitrogen) 27 mg/dL (9.8-20.1); Bilirubin, Total 0.6 mg/dL (0.2-1.2); Calc. Creatinine Clearance 58 mL/min (70-130); Calcium 9.7 mg/dL (7.8-10.44); Chloride 96 mmol/L (98-107); Estimated GFR 56; Globulin 2.9 g/dL (2.4-3.5); Glucose 94 mg/dL (83-110); Potassium 4.2 mmol/L (3.5-5.1); Protein, Total 6.4 g/dL (5.8-8.1); Sodium 135 mmol/L (136-145)
[2022-10-12 06:33] LABS: Carbon Dioxide 33 mmol/L (23-31)
[2022-10-12] MEDS ORDERED: cycloSPORINE 0.05% Ophthalmic Droperette EA EYE SCH (09:00)
[2022-10-12] MEDS: Carbidopa/Levodopa 25-100 mg Tablet PO SCH ×3 (09:03→21:06)
[2022-10-12] MEDS: traMADol HCl 50 MG TAB PO PRN ×3 (09:03→21:06)
[2022-10-12] MEDS: risperiDONE 0.25 MG TAB PO SCH ×2 (09:03→21:06)
[2022-10-12] MEDS: Polyethylene Glycol 3350 17 GM Packet PO SCH (09:04)
[2022-10-12] MEDS: DULoxetine 30 MG CAP PO SCH (09:05)
[2022-10-12] MEDS: Vit A,C & E/Lutein/Minerals Tablet PO SCH (09:05)
[2022-10-12] MEDS: Ferrous Sulfate 325 MG TAB PO SCH (09:06)
[2022-10-12] MEDS: Senokot S 8.6-50 MG TAB PO SCH (09:06)
[2022-10-12] MEDS: Amlodipine 5 MG TAB PO SCH (09:07)
[2022-10-12] MEDS: Aspirin 81 mg Enteric Coated Tablet PO SCH (09:07)
[2022-10-12] MEDS: Famotidine 20 MG TAB PO SCH ×2 (09:08→21:08)
[2022-10-12] MEDS: Torsemide 20 MG TAB PO SCH (09:08)
[2022-10-12] MEDS: Spironolactone 25 MG TAB PO SCH (09:08)
[2022-10-12] MEDS: Empagliflozin 10 MG TAB PO SCH (09:08)
[2022-10-12] MEDS: Guaifenesin DM 100-10/5 ML UDCUP PO SCH ×3 (09:09→21:03)
[2022-10-12] MEDS: Artificial Tear Sol 15 ML BOT EA EYE SCH (09:11)
[2022-10-12] MEDS: Polyethylene Glycol OPTH DROP 15 ML BOT EA EYE SCH ×3 (09:11→21:12)
[2022-10-12] MEDS: Mometasone/Formoterol 200/5 60 PUFF INH SCH ×2 (09:13→21:08)
[2022-10-12] MEDS: Losartan Potassium 50 MG TAB PO SCH (09:37)
[2022-10-12] MEDS: rOPINIRole HCl 1 MG TAB PO SCH (21:08)
[2022-10-12] MEDS: HYDROXYZINE 10 MG PO SCH (21:10)
[2022-10-12] MEDS: PROPAFENONE HCL 325 MG PO SCH (21:10)
[2022-10-12] MEDS ORDERED: Guaifenesin DM 100-10/5 ML UDCUP PO PRN (23:31)
[2022-10-13] MEDS: Acetaminophen 325 MG TAB PO SCH ×4 (03:42→18:13)
[2022-10-13] MEDS: traMADol HCl 50 MG TAB PO PRN (07:46)
[2022-10-13] MEDS: DULoxetine 30 MG CAP PO SCH (08:04)
[2022-10-13] MEDS: Vit A,C & E/Lutein/Minerals Tablet PO SCH (08:05)
[2022-10-13] MEDS: Ferrous Sulfate 325 MG TAB PO SCH (08:05)
[2022-10-13] MEDS: Carbidopa/Levodopa 25-100 mg Tablet PO SCH ×2 (08:05→15:08)
[2022-10-13] MEDS: Torsemide 20 MG TAB PO SCH (08:06)
[2022-10-13] MEDS: Losartan Potassium 50 MG TAB PO SCH (08:06)
[2022-10-13] MEDS: Senokot S 8.6-50 MG TAB PO SCH (08:07)
[2022-10-13] MEDS: Aspirin 81 mg Enteric Coated Tablet PO SCH (08:07)
[2022-10-13] MEDS: Empagliflozin 10 MG TAB PO SCH (08:07)
[2022-10-13] MEDS: Famotidine 20 MG TAB PO SCH (08:07)
[2022-10-13] MEDS: Spironolactone 25 MG TAB PO SCH (08:07)
[2022-10-13] MEDS: Amlodipine 5 MG TAB PO SCH (08:07)
[2022-10-13] MEDS: risperiDONE 0.25 MG TAB PO SCH (08:07)
[2022-10-13] MEDS: Polyethylene Glycol OPTH DROP 15 ML BOT EA EYE SCH ×2 (08:09→15:07)
[2022-10-13] MEDS: Artificial Tear Sol 15 ML BOT EA EYE SCH (08:09)
[2022-10-13] MEDS: Mometasone/Formoterol 200/5 60 PUFF INH SCH (08:09)
[2022-10-13] MEDS: Polyethylene Glycol 3350 17 GM Packet PO SCH (08:11)
[2022-10-13] MEDS ORDERED: PHENYLEPHRINE EA EYE SCH (09:00)
[2022-10-13] MEDS ORDERED: GLYCERIN EA EYE SCH (09:00)
[2022-10-13 09:32] VITALS: TEMP 97.6
[2022-10-13] MEDS ORDERED: traMADol HCl 50 MG TAB PO PRN (09:51)
[2022-10-13] MEDS ORDERED: Ibuprofen 200 MG TAB PO PRN (10:11)
[2022-10-13] MEDS: HYDROXYZINE 10 MG PO SCH (11:33)
[2022-10-13] MEDS: PROPAFENONE HCL 325 MG PO SCH (11:34)
[2022-10-13 17:43] VITALS: BP 117/57
[2022-10-13] MEDS ORDERED: Transdermal Patch Removal TOP SCH (21:00)
[2022-10-14] MEDS ORDERED: Lidocaine 4% Patch TD SCH (09:00)
[2022-10-14] MEDS ORDERED: Transdermal Patch Removal TOP SCH (21:00)
== END 2022-10-13 17:50 | disposition short-term general hospital (02) | DRG 560 ==
LOC: NAV ACUTE 19:51
PROVIDERS: ADMIT Family Medicine; ATTEND Family Medicine
DX: S72.002D Fracture of unspecified part of neck of left femur, subsequent encounter for closed fracture with routine healing (principal); E87.1 Hypo-osmolality and hyponatremia; I50.30 Unspecified diastolic (congestive) heart failure; J96.11 Chronic respiratory failure with hypoxia; I13.0 Hypertensive heart and chronic kidney disease with heart failure and stage 1 through stage 4 chronic kidney disease, or unspecified chronic kidney disease; J44.9 Chronic obstructive pulmonary disease, unspecified; K21.9 Gastro-esophageal reflux disease without esophagitis; M06.9 Rheumatoid arthritis, unspecified; Z96.653 Presence of artificial knee joint, bilateral; Z96.642 Presence of left artificial hip joint; I48.0 Paroxysmal atrial fibrillation; G47.33 Obstructive sleep apnea (adult) (pediatric); F41.1 Generalized anxiety disorder; N18.30 Chronic kidney disease, stage 3 unspecified; K58.1 Irritable bowel syndrome with constipation; D63.1 Anemia in chronic kidney disease; G25.81 Restless legs syndrome; Z98.890 Other specified postprocedural states; Z90.49 Acquired absence of other specified parts of digestive tract; Z90.710 Acquired absence of both cervix and uterus; Z88.8 Allergy status to other drugs, medicaments and biological substances; Z88.5 Allergy status to narcotic agent; Z86.73 Personal history of transient ischemic attack (TIA), and cerebral infarction without residual deficits
CPT/HCPCS: 36415; 71045; 80053; 81001; 83690; 83880; 84484; 85025; 85379; 93005; J1650; J7050

== ENCOUNTER 2022-10-13 18:06 | Emergency (ER) | payer MEDICARE ==
[2022-10-13 18:14] LABS: #Basophils 0.1 thou/uL (0.0-0.2); #Eosinphils 1.1 thou/uL (0.0-0.7); #Lymphocytes 1.5 thou/uL (1.20-3.40); #Monocytes 0.9 thou/uL (0.11-0.59); #Neutrophils 6.3 thou/uL (1.40-6.50); %Basophils 0.9 % (0.0-1.0); %Eosinophils 11.6 % (0.0-10.0); %Monocytes 8.9 % (0.0-10.0); %Neutrophils 63.7 % (42.0-75.0); Hemoglobin 9.5 g/dL (12.0-16.0); Mean Corpuscular HGB CONC 30.7 g/dL (32.0-36.0); Mean Corpuscular Hemoglobin 29.5 pg (27.0-31.0); Mean Corpuscular Volume 96.2 fl (78.0-98.0); Mean Platelet Volume 6.2 fL (7.4-10.4); Platelet Count 497 10x3/uL (130-400); RBC Distribution Width 17.9 % (11.5-14.5); Red Blood Cell (RBC) Count 3.22 mill/uL (4.20-5.40); White Blood Cell (WBC) Count 9.9 10x3/uL (4.8-10.8)
[2022-10-13 18:26] LABS: ALT (SGPT) Less than 7 U/L (8-55); AST (SGOT) 27 U/L (5-34); Albumin 3.9 g/dL (3.4-4.8); Alkaline Phosphatase 144 U/L (40-110); Anion Gap 20 mmol/L (10-20); BUN (Urea Nitrogen) 38 mg/dL (9.8-20.1); Bilirubin, Total 0.8 mg/dL (0.2-1.2); Calc. Creatinine Clearance 0 mL/min (70-130); Calcium 10.2 mg/dL (7.8-10.44); Carbon Dioxide 24 mmol/L (23-31); Chloride 95 mmol/L (98-107); Estimated GFR 30; Globulin 3.7 g/dL (2.4-3.5); Glucose 100 mg/dL (83-110); Lipase 82 U/L (8-78); Potassium 5.5 mmol/L (3.5-5.1); Protein, Total 7.6 g/dL (5.8-8.1); Sodium 133 mmol/L (136-145)
[2022-10-13] MEDS ORDERED: Aspirin Chewable 81 MG TAB ONE (18:31)
[2022-10-13] MEDS ORDERED: Nitroglycerin 2% Ointment 1 INCH/1 GM Packet ONE (18:31)
[2022-10-13] MEDS ORDERED: Sodium Chloride 0.9% 1,000 ML ONE (18:36)
[2022-10-13 19:29] LABS: Bilirubin Negative (Negative); Blood, Urine Negative (Negative); CAUTI Indications for Culture Dysuria,urgency,freq; Clarity Clear (Clear); Glucose, Urine (Dipstick) Negative (Negative); Ketone, Urine Negative (Negative); Leukocyte Trace (Negative); Nitrite Negative (Negative); Protein, Urine (Dipstick) Negative (Neg-Trace); Urobilinogen 0.2 mg/dL (Less than 2)
[2022-10-13 19:31] LABS: Bacteria/HPF Rare-Few HPF (None Seen); RBC/HPF None Seen HPF (0-3); Squamous Epithelial None Seen HPF (0-3); Urine Culture Reflex No No; WBC/HPF 0-3 HPF (0-3)
== END 2022-10-13 20:10 | disposition short-term general hospital (02) ==
LOC: NAV ERS 18:06
DX: J44.9 Chronic obstructive pulmonary disease, unspecified (principal); E86.0 Dehydration; E87.5 Hyperkalemia; D64.9 Anemia, unspecified; I11.0 Hypertensive heart disease with heart failure; I50.9 Heart failure, unspecified; N28.9 Disorder of kidney and ureter, unspecified; E66.9 Obesity, unspecified; K21.9 Gastro-esophageal reflux disease without esophagitis; E78.5 Hyperlipidemia, unspecified
CPT/HCPCS: 36415; 71045; 80053; 81001; 83690; 83880; 84484; 85025; 85379; 93005; J7050

== ENCOUNTER 2022-10-16 12:15 | Inpatient (IN) | payer MEDICARE ==
[2022-10-16] MEDS ORDERED: Bisacodyl 10 MG SUPP PR PRN (14:05)
[2022-10-16] MEDS ORDERED: Calcium Carbonate 500 MG ChewTAB PO PRN (14:05)
[2022-10-16] MEDS ORDERED: Bisacodyl 5 MG TAB PO PRN (14:05)
[2022-10-16] MEDS ORDERED: Senokot S 8.6-50 MG TAB PO PRN (14:05)
[2022-10-16] MEDS ORDERED: Ondansetron ODT 4 MG TAB PO PRN (14:05)
[2022-10-16] MEDS ORDERED: HYDROcodone/Acetaminophen 5/325 mg Tablet PO PRN (14:05)
[2022-10-16] MEDS ORDERED: Nitroglycerin 0.4 MG TAB (25 Tab Bottle) SL PRN (14:29)
[2022-10-16] MEDS ORDERED: Ondansetron ODT 4 MG TAB SL PRN (14:45)
[2022-10-16] MEDS ORDERED: Ipratropium/Albuterol 3 ML NEB NEB PRN (14:46)
[2022-10-16] MEDS ORDERED: cloNIDine 0.1 MG TAB PO PRN (14:46)
[2022-10-16] MEDS: Carbidopa/Levodopa 25-100 mg Tablet PO SCH ×2 (15:52→21:12)
[2022-10-16] MEDS: PROPYLENE GLYCOL EA EYE SCH ×2 (15:52→21:14)
[2022-10-16] MEDS: PEG EA EYE SCH ×2 (15:52→21:14)
[2022-10-16] MEDS: Acetaminophen 325 MG TAB PO PRN (16:33)
[2022-10-16] MEDS: risperiDONE 0.25 MG TAB PO SCH (21:12)
[2022-10-16] MEDS: rOPINIRole HCl 1 MG TAB PO SCH (21:12)
[2022-10-16] MEDS: Famotidine 20 MG TAB PO SCH (21:12)
[2022-10-16] MEDS: PROPAFENONE HCL 325 MG PO SCH (21:13)
[2022-10-16] MEDS: HYDROXYZINE 10 MG PO SCH (21:13)
[2022-10-16] MEDS: Mometasone/Formoterol 60 PUFF AER INH SCH ×2 (21:16→21:32)
[2022-10-17] MEDS: Acetaminophen 325 MG TAB PO PRN ×2 (05:29→21:07)
[2022-10-17 05:49] LABS: Phosphorus 4.8 mg/dL (2.3-4.7)
[2022-10-17 05:56] LABS: Anion Gap 18 mmol/L (10-20); BUN (Urea Nitrogen) 35 mg/dL (9.8-20.1); Calc. Creatinine Clearance 44 mL/min (70-130); Calcium 9.7 mg/dL (7.8-10.44); Carbon Dioxide 26 mmol/L (23-31); Chloride 99 mmol/L (98-107); Estimated GFR 43; Glucose 96 mg/dL (83-110); Potassium 3.7 mmol/L (3.5-5.1); Sodium 139 mmol/L (136-145)
[2022-10-17] MEDS ORDERED: Spironolactone 25 MG TAB PO SCH (08:00)
[2022-10-17] MEDS: PEG EA EYE SCH ×3 (08:00→21:06)
[2022-10-17] MEDS: PROPYLENE GLYCOL EA EYE SCH ×3 (08:00→21:06)
[2022-10-17] MEDS: Torsemide 20 MG TAB PO SCH (08:01)
[2022-10-17] MEDS: Multivitamin W/ Minerals 1 TAB PO SCH (08:01)
[2022-10-17] MEDS: Carbidopa/Levodopa 25-100 mg Tablet PO SCH ×3 (08:01→21:08)
[2022-10-17] MEDS: Spironolactone 25 MG TAB PO SCH (08:01)
[2022-10-17] MEDS: Famotidine 20 MG TAB PO SCH ×2 (08:01→21:08)
[2022-10-17] MEDS: DULoxetine 30 MG CAP PO SCH (08:01)
[2022-10-17] MEDS: Aspirin 81 mg Enteric Coated Tablet PO SCH (08:01)
[2022-10-17] MEDS: risperiDONE 0.25 MG TAB PO SCH ×2 (08:01→21:08)
[2022-10-17] MEDS: HYDROXYZINE 10 MG PO SCH ×2 (08:03→21:06)
[2022-10-17] MEDS: PROPAFENONE HCL 325 MG PO SCH ×2 (08:03→21:06)
[2022-10-17] MEDS: Polyethylene Glycol 3350 17 GM Packet PO SCH (08:04)
[2022-10-17] MEDS: Mometasone/Formoterol 60 PUFF AER INH SCH ×2 (08:06→21:06)
[2022-10-17] MEDS: RESTASIS 0.05% EA EYE SCH (08:07)
[2022-10-17] MEDS: NIFEdipine XL 30 MG TAB PO SCH (08:13)
[2022-10-17] MEDS: Losartan Potassium 50 MG TAB PO SCH (08:13)
[2022-10-17] MEDS: rOPINIRole HCl 1 MG TAB PO SCH (21:08)
[2022-10-18] MEDS: Polyethylene Glycol 3350 17 GM Packet PO SCH (08:01)
[2022-10-18] MEDS: Multivitamin W/ Minerals 1 TAB PO SCH (08:02)
[2022-10-18] MEDS: DULoxetine 30 MG CAP PO SCH (08:02)
[2022-10-18] MEDS: Aspirin 81 mg Enteric Coated Tablet PO SCH (08:02)
[2022-10-18] MEDS: Famotidine 20 MG TAB PO SCH (08:02)
[2022-10-18] MEDS: Spironolactone 25 MG TAB PO SCH (08:03)
[2022-10-18] MEDS: risperiDONE 0.25 MG TAB PO SCH ×2 (08:03→21:00)
[2022-10-18] MEDS: Carbidopa/Levodopa 25-100 mg Tablet PO SCH ×3 (08:03→21:00)
[2022-10-18] MEDS: HYDROXYZINE 10 MG PO SCH ×2 (08:04→21:00)
[2022-10-18] MEDS: PROPAFENONE HCL 325 MG PO SCH ×2 (08:04→21:00)
[2022-10-18] MEDS: Mometasone/Formoterol 60 PUFF AER INH SCH ×2 (08:05→21:00)
[2022-10-18] MEDS: RESTASIS 0.05% EA EYE SCH (08:06)
[2022-10-18] MEDS: PEG EA EYE SCH ×3 (08:06→21:01)
[2022-10-18] MEDS: PROPYLENE GLYCOL EA EYE SCH ×3 (08:06→21:01)
[2022-10-18] MEDS: NIFEdipine XL 30 MG TAB PO SCH (10:35)
[2022-10-18] MEDS: Losartan Potassium 50 MG TAB PO SCH (10:40)
[2022-10-18] MEDS ORDERED: Losartan Potassium 50 MG TAB PO SCH ×2 (10:41→11:15)
[2022-10-18] MEDS: traMADol HCl 50 MG TAB PO PRN (15:19)
[2022-10-18] MEDS: rOPINIRole HCl 1 MG TAB PO SCH (21:00)
[2022-10-19] MEDS: DULoxetine 30 MG CAP PO SCH (08:10)
[2022-10-19] MEDS: traMADol HCl 50 MG TAB PO PRN ×2 (08:11→20:52)
[2022-10-19] MEDS: Spironolactone 25 MG TAB PO SCH (08:13)
[2022-10-19] MEDS: risperiDONE 0.25 MG TAB PO SCH ×2 (08:13→20:52)
[2022-10-19] MEDS: Torsemide 20 MG TAB PO SCH (08:13)
[2022-10-19] MEDS: Famotidine 20 MG TAB PO SCH (08:15)
[2022-10-19] MEDS: Multivitamin W/ Minerals 1 TAB PO SCH (08:15)
[2022-10-19] MEDS: Carbidopa/Levodopa 25-100 mg Tablet PO SCH ×3 (08:16→20:52)
[2022-10-19] MEDS: Losartan Potassium 50 MG TAB PO SCH (08:17)
[2022-10-19] MEDS: Aspirin 81 mg Enteric Coated Tablet PO SCH (08:17)
[2022-10-19] MEDS: NIFEdipine XL 30 MG TAB PO SCH (08:19)
[2022-10-19] MEDS: Mometasone/Formoterol 60 PUFF AER INH SCH ×2 (08:20→20:59)
[2022-10-19] MEDS: Polyethylene Glycol 3350 17 GM Packet PO SCH (08:22)
[2022-10-19] MEDS: PEG EA EYE SCH ×3 (08:56→20:59)
[2022-10-19] MEDS: PROPYLENE GLYCOL EA EYE SCH ×3 (08:56→20:59)
[2022-10-19] MEDS: PROPAFENONE HCL 325 MG PO SCH ×2 (08:56→20:54)
[2022-10-19] MEDS: HYDROXYZINE 10 MG PO SCH ×2 (08:57→20:56)
[2022-10-19] MEDS: RESTASIS 0.05% EA EYE SCH (08:57)
[2022-10-19] MEDS: Acetaminophen 325 MG TAB PO PRN (13:33)
[2022-10-19] MEDS: rOPINIRole HCl 1 MG TAB PO SCH (20:52)
[2022-10-19] MEDS: Transdermal Patch Removal TOP SCH (21:00)
[2022-10-20 06:06] LABS: #Basophils 0.1 thou/uL (0.0-0.2); #Eosinphils 0.7 thou/uL (0.0-0.7); #Lymphocytes 1.1 thou/uL (1.20-3.40); #Monocytes 0.7 thou/uL (0.11-0.59); #Neutrophils 2.2 thou/uL (1.40-6.50); %Basophils 1.3 % (0.0-1.0); %Eosinophils 15.1 % (0.0-10.0); %Lymphocytes 22.9 % (21.0-51.0); %Monocytes 14.4 % (0.0-10.0); %Neutrophils 46.2 % (42.0-75.0); Hematocrit 28.3 % (36.0-47.0); Hemoglobin 8.4 g/dL (12.0-16.0); Mean Corpuscular HGB CONC 29.7 g/dL (32.0-36.0); Mean Corpuscular Hemoglobin 29.6 pg (27.0-31.0); Mean Corpuscular Volume 99.5 fl (78.0-98.0); Mean Platelet Volume 6.3 fL (7.4-10.4); Platelet Count 256 10x3/uL (130-400); RBC Distribution Width 17.5 % (11.5-14.5); Red Blood Cell (RBC) Count 2.85 mill/uL (4.20-5.40); White Blood Cell (WBC) Count 4.8 10x3/uL (4.8-10.8)
[2022-10-20 06:21] LABS: Anion Gap 12 mmol/L (10-20); BUN (Urea Nitrogen) 55 mg/dL (9.8-20.1); Calc. Creatinine Clearance 34 mL/min (70-130); Calcium 9.6 mg/dL (7.8-10.44); Carbon Dioxide 30 mmol/L (23-31); Chloride 98 mmol/L (98-107); Estimated GFR 31; Glucose 94 mg/dL (83-110); Potassium 4.9 mmol/L (3.5-5.1); Sodium 135 mmol/L (136-145)
[2022-10-20] MEDS: PROPAFENONE HCL 325 MG PO SCH ×2 (08:33→20:42)
[2022-10-20] MEDS: HYDROXYZINE 10 MG PO SCH ×2 (08:34→20:43)
[2022-10-20] MEDS: Famotidine 20 MG TAB PO SCH (08:35)
[2022-10-20] MEDS: risperiDONE 0.25 MG TAB PO SCH ×2 (08:36→20:42)
[2022-10-20] MEDS: Multivitamin W/ Minerals 1 TAB PO SCH (08:36)
[2022-10-20] MEDS: Aspirin 81 mg Enteric Coated Tablet PO SCH (08:36)
[2022-10-20] MEDS: Spironolactone 25 MG TAB PO SCH (08:36)
[2022-10-20] MEDS: Carbidopa/Levodopa 25-100 mg Tablet PO SCH ×3 (08:37→20:42)
[2022-10-20] MEDS: NIFEdipine XL 30 MG TAB PO SCH (08:37)
[2022-10-20] MEDS: Losartan Potassium 50 MG TAB PO SCH (08:39)
[2022-10-20] MEDS: Lidocaine 4% Patch TD SCH (08:40)
[2022-10-20] MEDS: PROPYLENE GLYCOL EA EYE SCH ×3 (08:41→20:43)
[2022-10-20] MEDS: RESTASIS 0.05% EA EYE SCH (08:41)
[2022-10-20] MEDS: PEG EA EYE SCH ×3 (08:41→20:43)
[2022-10-20] MEDS: Mometasone/Formoterol 60 PUFF AER INH SCH ×2 (08:44→20:46)
[2022-10-20] MEDS: Polyethylene Glycol 3350 17 GM Packet PO SCH (08:47)
[2022-10-20] MEDS ORDERED: Lidocaine 5% Patch TD SCH (09:00)
[2022-10-20] MEDS: DULoxetine 30 MG CAP PO SCH (09:05)
[2022-10-20] MEDS: traMADol HCl 50 MG TAB PO PRN (10:55)
[2022-10-20] MEDS: Acetaminophen 325 MG TAB PO PRN (14:34)
[2022-10-20] MEDS: rOPINIRole HCl 1 MG TAB PO SCH (20:42)
[2022-10-20] MEDS: Transdermal Patch Removal TOP SCH (20:43)
[2022-10-21 06:02] LABS: Hematocrit 28.2 % (36.0-47.0); Hemoglobin 8.4 g/dL (12.0-16.0); Mean Corpuscular HGB CONC 29.8 g/dL (32.0-36.0); Mean Corpuscular Hemoglobin 29.6 pg (27.0-31.0); Mean Corpuscular Volume 99.5 fl (78.0-98.0); Mean Platelet Volume 5.8 fL (7.4-10.4); Platelet Count 234 10x3/uL (130-400); RBC Distribution Width 17.3 % (11.5-14.5); Red Blood Cell (RBC) Count 2.84 mill/uL (4.20-5.40); White Blood Cell (WBC) Count 4.9 10x3/uL (4.8-10.8)
[2022-10-21 06:18] LABS: Anion Gap 15 mmol/L (10-20); BUN (Urea Nitrogen) 56 mg/dL (9.8-20.1); Calc. Creatinine Clearance 34 mL/min (70-130); Calcium 9.5 mg/dL (7.8-10.44); Carbon Dioxide 25 mmol/L (23-31); Chloride 99 mmol/L (98-107); Estimated GFR 31; Glucose 97 mg/dL (83-110); Magnesium 2.5 mg/dL (1.6-2.6); Phosphorus 4.6 mg/dL (2.3-4.7); Sodium 134 mmol/L (136-145)
[2022-10-21] MEDS: Polyethylene Glycol 3350 17 GM Packet PO SCH (07:42)
[2022-10-21] MEDS: risperiDONE 0.25 MG TAB PO SCH ×2 (07:44→21:18)
[2022-10-21] MEDS: Multivitamin W/ Minerals 1 TAB PO SCH (07:44)
[2022-10-21] MEDS: DULoxetine 30 MG CAP PO SCH (07:45)
[2022-10-21] MEDS: Losartan Potassium 50 MG TAB PO SCH (07:45)
[2022-10-21] MEDS: Famotidine 20 MG TAB PO SCH (07:45)
[2022-10-21] MEDS: Torsemide 20 MG TAB PO SCH (07:45)
[2022-10-21] MEDS: Spironolactone 25 MG TAB PO SCH (07:46)
[2022-10-21] MEDS: Carbidopa/Levodopa 25-100 mg Tablet PO SCH ×3 (07:46→21:18)
[2022-10-21] MEDS: Aspirin 81 mg Enteric Coated Tablet PO SCH (07:46)
[2022-10-21] MEDS: Mometasone/Formoterol 60 PUFF AER INH SCH ×2 (07:51→21:18)
[2022-10-21] MEDS: Lidocaine 4% Patch TD SCH (07:51)
[2022-10-21] MEDS: PROPAFENONE HCL 325 MG PO SCH ×2 (07:52→21:19)
[2022-10-21] MEDS: HYDROXYZINE 10 MG PO SCH ×2 (07:52→21:19)
[2022-10-21] MEDS: PROPYLENE GLYCOL EA EYE SCH ×3 (07:53→21:20)
[2022-10-21] MEDS: RESTASIS 0.05% EA EYE SCH (07:53)
[2022-10-21] MEDS: PEG EA EYE SCH ×3 (07:53→21:20)
[2022-10-21] MEDS: traMADol HCl 50 MG TAB PO PRN (08:03)
[2022-10-21] MEDS: NIFEdipine XL 30 MG TAB PO SCH (08:03)
[2022-10-21] MEDS: rOPINIRole HCl 1 MG TAB PO SCH (21:18)
[2022-10-21] MEDS: Transdermal Patch Removal TOP SCH (21:20)
[2022-10-22] MEDS: Polyethylene Glycol 3350 17 GM Packet PO SCH (08:22)
[2022-10-22] MEDS: Lidocaine 4% Patch TD SCH (08:24)
[2022-10-22] MEDS: Famotidine 20 MG TAB PO SCH (08:25)
[2022-10-22] MEDS: risperiDONE 0.25 MG TAB PO SCH ×2 (08:26→21:13)
[2022-10-22] MEDS: Aspirin 81 mg Enteric Coated Tablet PO SCH (08:26)
[2022-10-22] MEDS: Carbidopa/Levodopa 25-100 mg Tablet PO SCH ×3 (08:26→21:13)
[2022-10-22] MEDS: Multivitamin W/ Minerals 1 TAB PO SCH (08:26)
[2022-10-22] MEDS: DULoxetine 30 MG CAP PO SCH (08:26)
[2022-10-22] MEDS: Losartan Potassium 50 MG TAB PO SCH (08:27)
[2022-10-22] MEDS: Spironolactone 25 MG TAB PO SCH (08:27)
[2022-10-22] MEDS: RESTASIS 0.05% EA EYE SCH (08:31)
[2022-10-22] MEDS: PROPYLENE GLYCOL EA EYE SCH ×3 (08:31→21:14)
[2022-10-22] MEDS: PEG EA EYE SCH ×3 (08:31→21:14)
[2022-10-22] MEDS: Mometasone/Formoterol 60 PUFF AER INH SCH ×2 (08:32→21:14)
[2022-10-22] MEDS: PROPAFENONE HCL 325 MG PO SCH ×2 (08:42→21:15)
[2022-10-22] MEDS: HYDROXYZINE 10 MG PO SCH ×2 (08:42→21:15)
[2022-10-22] MEDS: NIFEdipine XL 30 MG TAB PO SCH (08:42)
[2022-10-22] MEDS: traMADol HCl 50 MG TAB PO PRN (08:44)
[2022-10-22] MEDS: Acetaminophen 325 MG TAB PO PRN (13:55)
[2022-10-22] MEDS: rOPINIRole HCl 1 MG TAB PO SCH (21:13)
[2022-10-22] MEDS: Transdermal Patch Removal TOP SCH (21:13)
[2022-10-23] MEDS: traMADol HCl 50 MG TAB PO PRN ×2 (07:29→20:31)
[2022-10-23] MEDS: Mometasone/Formoterol 60 PUFF AER INH SCH ×2 (07:30→20:32)
[2022-10-23] MEDS: PROPYLENE GLYCOL EA EYE SCH ×3 (07:32→20:33)
[2022-10-23] MEDS: PEG EA EYE SCH ×3 (07:32→20:33)
[2022-10-23] MEDS: PROPAFENONE HCL 325 MG PO SCH ×2 (07:33→20:33)
[2022-10-23] MEDS: HYDROXYZINE 10 MG PO SCH ×2 (07:33→20:33)
[2022-10-23] MEDS: RESTASIS 0.05% EA EYE SCH (07:33)
[2022-10-23] MEDS: Polyethylene Glycol 3350 17 GM Packet PO SCH (07:34)
[2022-10-23] MEDS: DULoxetine 30 MG CAP PO SCH (07:34)
[2022-10-23] MEDS: Losartan Potassium 50 MG TAB PO SCH (07:35)
[2022-10-23] MEDS: NIFEdipine XL 30 MG TAB PO SCH (07:35)
[2022-10-23] MEDS: Torsemide 20 MG TAB PO SCH (07:35)
[2022-10-23] MEDS: Multivitamin W/ Minerals 1 TAB PO SCH (07:35)
[2022-10-23] MEDS: Aspirin 81 mg Enteric Coated Tablet PO SCH (07:35)
[2022-10-23] MEDS: Famotidine 20 MG TAB PO SCH (07:35)
[2022-10-23] MEDS: risperiDONE 0.25 MG TAB PO SCH ×2 (07:36→20:32)
[2022-10-23] MEDS: Carbidopa/Levodopa 25-100 mg Tablet PO SCH ×3 (07:36→20:32)
[2022-10-23] MEDS: Spironolactone 25 MG TAB PO SCH (07:37)
[2022-10-23] MEDS: Lidocaine 4% Patch TD SCH (07:37)
[2022-10-23] MEDS: rOPINIRole HCl 1 MG TAB PO SCH (20:31)
[2022-10-23] MEDS: Transdermal Patch Removal TOP SCH (20:34)
[2022-10-24 07:14] LABS: #Basophils 0.1 thou/uL (0.0-0.2); #Eosinphils 0.5 thou/uL (0.0-0.7); #Lymphocytes 1.1 thou/uL (1.20-3.40); #Monocytes 0.7 thou/uL (0.11-0.59); #Neutrophils 2.2 thou/uL (1.40-6.50); %Basophils 1.2 % (0.0-1.0); %Eosinophils 11.7 % (0.0-10.0); %Lymphocytes 23.5 % (21.0-51.0); %Monocytes 14.7 % (0.0-10.0); %Neutrophils 48.9 % (42.0-75.0); Hematocrit 28.9 % (36.0-47.0); Hemoglobin 8.6 g/dL (12.0-16.0); Mean Corpuscular HGB CONC 29.7 g/dL (32.0-36.0); Mean Corpuscular Hemoglobin 29.7 pg (27.0-31.0); Mean Platelet Volume 6.4 fL (7.4-10.4); Platelet Count 197 10x3/uL (130-400); RBC Distribution Width 16.9 % (11.5-14.5); Red Blood Cell (RBC) Count 2.89 mill/uL (4.20-5.40); White Blood Cell (WBC) Count 4.6 10x3/uL (4.8-10.8)
[2022-10-24 07:22] LABS: Anion Gap 14 mmol/L (10-20); BUN (Urea Nitrogen) 50 mg/dL (9.8-20.1); Calc. Creatinine Clearance 40 mL/min (70-130); Calcium 9.5 mg/dL (7.8-10.44); Carbon Dioxide 25 mmol/L (23-31); Chloride 102 mmol/L (98-107); Estimated GFR 36; Glucose 92 mg/dL (83-110); Sodium 136 mmol/L (136-145)
[2022-10-24] MEDS: PROPAFENONE HCL 325 MG PO SCH ×2 (07:38→20:55)
[2022-10-24] MEDS: HYDROXYZINE 10 MG PO SCH ×2 (07:38→20:50)
[2022-10-24] MEDS: NIFEdipine XL 30 MG TAB PO SCH (07:39)
[2022-10-24] MEDS: Spironolactone 25 MG TAB PO SCH (07:40)
[2022-10-24] MEDS: risperiDONE 0.25 MG TAB PO SCH ×2 (07:40→20:49)
[2022-10-24] MEDS: Multivitamin W/ Minerals 1 TAB PO SCH (07:40)
[2022-10-24] MEDS: Famotidine 20 MG TAB PO SCH (07:40)
[2022-10-24] MEDS: Aspirin 81 mg Enteric Coated Tablet PO SCH (07:40)
[2022-10-24] MEDS: DULoxetine 30 MG CAP PO SCH (07:40)
[2022-10-24] MEDS: Carbidopa/Levodopa 25-100 mg Tablet PO SCH ×3 (07:41→20:49)
[2022-10-24] MEDS: Losartan Potassium 50 MG TAB PO SCH (07:41)
[2022-10-24] MEDS: Polyethylene Glycol 3350 17 GM Packet PO SCH (07:41)
[2022-10-24] MEDS: Lidocaine 4% Patch TD SCH (07:41)
[2022-10-24] MEDS: PROPYLENE GLYCOL EA EYE SCH ×3 (07:42→20:52)
[2022-10-24] MEDS: PEG EA EYE SCH ×3 (07:42→20:52)
[2022-10-24] MEDS: Mometasone/Formoterol 60 PUFF AER INH SCH ×2 (07:43→20:49)
[2022-10-24] MEDS: RESTASIS 0.05% EA EYE SCH (07:44)
[2022-10-24] MEDS: traMADol HCl 50 MG TAB PO PRN ×2 (08:37→14:27)
[2022-10-24] MEDS: rOPINIRole HCl 1 MG TAB PO SCH (20:49)
[2022-10-24] MEDS: Transdermal Patch Removal TOP SCH (20:53)
[2022-10-25] MEDS: PROPAFENONE HCL 325 MG PO SCH ×2 (07:37→20:40)
[2022-10-25] MEDS: HYDROXYZINE 10 MG PO SCH ×2 (07:37→20:39)
[2022-10-25] MEDS: RESTASIS 0.05% EA EYE SCH (07:38)
[2022-10-25] MEDS: PEG EA EYE SCH ×3 (07:38→20:40)
[2022-10-25] MEDS: PROPYLENE GLYCOL EA EYE SCH ×3 (07:38→20:40)
[2022-10-25] MEDS: Mometasone/Formoterol 60 PUFF AER INH SCH ×2 (07:40→20:38)
[2022-10-25] MEDS: Polyethylene Glycol 3350 17 GM Packet PO SCH (07:42)
[2022-10-25] MEDS: NIFEdipine XL 30 MG TAB PO SCH (07:45)
[2022-10-25] MEDS: Famotidine 20 MG TAB PO SCH (07:45)
[2022-10-25] MEDS: Torsemide 20 MG TAB PO SCH (07:49)
[2022-10-25] MEDS: DULoxetine 30 MG CAP PO SCH (07:49)
[2022-10-25] MEDS: Losartan Potassium 50 MG TAB PO SCH (07:49)
[2022-10-25] MEDS: risperiDONE 0.25 MG TAB PO SCH ×2 (07:49→20:37)
[2022-10-25] MEDS: Carbidopa/Levodopa 25-100 mg Tablet PO SCH ×3 (07:49→20:37)
[2022-10-25] MEDS: Multivitamin W/ Minerals 1 TAB PO SCH (07:49)
[2022-10-25] MEDS: Spironolactone 25 MG TAB PO SCH (07:50)
[2022-10-25] MEDS: Aspirin 81 mg Enteric Coated Tablet PO SCH (07:50)
[2022-10-25] MEDS: Lidocaine 4% Patch TD SCH (07:54)
[2022-10-25] MEDS: traMADol HCl 50 MG TAB PO PRN (12:52)
[2022-10-25] MEDS: rOPINIRole HCl 1 MG TAB PO SCH (20:37)
[2022-10-25] MEDS: Transdermal Patch Removal TOP SCH (20:41)
[2022-10-26] MEDS: Spironolactone 25 MG TAB PO SCH (08:02)
[2022-10-26] MEDS: HYDROXYZINE 10 MG PO SCH ×2 (08:04→20:38)
[2022-10-26] MEDS: PROPAFENONE HCL 325 MG PO SCH ×2 (08:04→20:36)
[2022-10-26] MEDS: Losartan Potassium 50 MG TAB PO SCH (08:05)
[2022-10-26] MEDS: Carbidopa/Levodopa 25-100 mg Tablet PO SCH ×3 (08:06→20:35)
[2022-10-26] MEDS: Famotidine 20 MG TAB PO SCH (08:06)
[2022-10-26] MEDS: risperiDONE 0.25 MG TAB PO SCH ×2 (08:06→20:35)
[2022-10-26] MEDS: NIFEdipine XL 30 MG TAB PO SCH (08:07)
[2022-10-26] MEDS: DULoxetine 30 MG CAP PO SCH (08:07)
[2022-10-26] MEDS: Multivitamin W/ Minerals 1 TAB PO SCH (08:08)
[2022-10-26] MEDS: Aspirin 81 mg Enteric Coated Tablet PO SCH (08:08)
[2022-10-26] MEDS: Polyethylene Glycol 3350 17 GM Packet PO SCH (08:10)
[2022-10-26] MEDS: PEG EA EYE SCH ×3 (08:10→20:35)
[2022-10-26] MEDS: Mometasone/Formoterol 60 PUFF AER INH SCH ×2 (08:10→20:37)
[2022-10-26] MEDS: PROPYLENE GLYCOL EA EYE SCH ×3 (08:10→20:35)
[2022-10-26] MEDS: RESTASIS 0.05% EA EYE SCH (08:10)
[2022-10-26] MEDS: traMADol HCl 50 MG TAB PO PRN (09:48)
[2022-10-26] MEDS: Lidocaine 4% Patch TD SCH (09:52)
[2022-10-26] MEDS ORDERED: Furosemide 20 MG TAB PO SCH (14:15)
[2022-10-26] MEDS: Acetaminophen 325 MG TAB PO PRN (14:49)
[2022-10-26] MEDS: rOPINIRole HCl 1 MG TAB PO SCH (20:35)
[2022-10-26] MEDS: Transdermal Patch Removal TOP SCH (21:03)
[2022-10-27] MEDS: Multivitamin W/ Minerals 1 TAB PO SCH (08:18)
[2022-10-27] MEDS: Spironolactone 25 MG TAB PO SCH (08:18)
[2022-10-27] MEDS: traMADol HCl 50 MG TAB PO PRN ×2 (08:18→14:15)
[2022-10-27] MEDS: DULoxetine 30 MG CAP PO SCH (08:19)
[2022-10-27] MEDS: Aspirin 81 mg Enteric Coated Tablet PO SCH (08:19)
[2022-10-27] MEDS: Torsemide 20 MG TAB PO SCH (08:19)
[2022-10-27] MEDS: Carbidopa/Levodopa 25-100 mg Tablet PO SCH ×3 (08:19→21:03)
[2022-10-27] MEDS: risperiDONE 0.25 MG TAB PO SCH ×2 (08:19→21:03)
[2022-10-27] MEDS: Famotidine 20 MG TAB PO SCH (08:20)
[2022-10-27] MEDS: PROPAFENONE HCL 325 MG PO SCH ×2 (08:20→21:04)
[2022-10-27] MEDS: HYDROXYZINE 10 MG PO SCH ×2 (08:20→21:05)
[2022-10-27] MEDS: Losartan Potassium 50 MG TAB PO SCH (08:20)
[2022-10-27] MEDS: Mometasone/Formoterol 60 PUFF AER INH SCH ×2 (08:21→21:04)
[2022-10-27] MEDS: PROPYLENE GLYCOL EA EYE SCH ×3 (08:21→21:04)
[2022-10-27] MEDS: PEG EA EYE SCH ×3 (08:21→21:04)
[2022-10-27] MEDS: NIFEdipine XL 30 MG TAB PO SCH (08:22)
[2022-10-27] MEDS: Lidocaine 4% Patch TD SCH (08:22)
[2022-10-27] MEDS: Polyethylene Glycol 3350 17 GM Packet PO SCH (08:23)
[2022-10-27] MEDS: RESTASIS 0.05% EA EYE SCH (08:30)
[2022-10-27] MEDS: Acetaminophen 325 MG TAB PO PRN (11:53)
[2022-10-27] MEDS: rOPINIRole HCl 1 MG TAB PO SCH (21:03)
[2022-10-27] MEDS: Transdermal Patch Removal TOP SCH (22:33)
[2022-10-28 05:32] VITALS: BMI 341287.1
[2022-10-28 06:13] LABS: Hematocrit 29.8 % (36.0-47.0); Mean Corpuscular HGB CONC 30.1 g/dL (32.0-36.0); Mean Corpuscular Hemoglobin 29.6 pg (27.0-31.0); Mean Corpuscular Volume 98.1 fl (78.0-98.0); Mean Platelet Volume 6.2 fL (7.4-10.4); Platelet Count 159 10x3/uL (130-400); RBC Distribution Width 16.3 % (11.5-14.5); Red Blood Cell (RBC) Count 3.03 mill/uL (4.20-5.40); White Blood Cell (WBC) Count 4.7 10x3/uL (4.8-10.8)
[2022-10-28 06:15] LABS: #Eosinphils 0.7 thou/uL (0.0-0.7); #Lymphocytes 0.9 thou/uL (1.20-3.40); #Monocytes 0.8 thou/uL (0.11-0.59); #Neutrophils 2.3 thou/uL (1.40-6.50); %Basophils 1.3 % (0.0-1.0); %Eosinophils 14.7 % (0.0-10.0); %Lymphocytes 19.1 % (21.0-51.0); %Neutrophils 48.8 % (42.0-75.0)
[2022-10-28 06:16] LABS: #Basophils 0.1 thou/uL (0.0-0.2)
[2022-10-28 06:25] LABS: Anion Gap 12 mmol/L (10-20); BUN (Urea Nitrogen) 39 mg/dL (9.8-20.1); Calc. Creatinine Clearance 43 mL/min (70-130); Calcium 9.5 mg/dL (7.8-10.44); Carbon Dioxide 27 mmol/L (23-31); Chloride 102 mmol/L (98-107); Estimated GFR 38; Glucose 92 mg/dL (83-110); Potassium 4.6 mmol/L (3.5-5.1); Sodium 136 mmol/L (136-145)
[2022-10-28 07:44] VITALS: BP 136/60; TEMP 97.1
[2022-10-28] MEDS: traMADol HCl 50 MG TAB PO PRN (08:29)
[2022-10-28] MEDS: Spironolactone 25 MG TAB PO SCH (08:30)
[2022-10-28] MEDS: HYDROXYZINE 10 MG PO SCH (09:12)
[2022-10-28] MEDS: PROPAFENONE HCL 325 MG PO SCH (09:13)
[2022-10-28] MEDS: PEG EA EYE SCH (09:13)
[2022-10-28] MEDS: Mometasone/Formoterol 60 PUFF AER INH SCH (09:13)
[2022-10-28] MEDS: PROPYLENE GLYCOL EA EYE SCH (09:13)
[2022-10-28] MEDS: DULoxetine 30 MG CAP PO SCH (09:15)
[2022-10-28] MEDS: Multivitamin W/ Minerals 1 TAB PO SCH (09:15)
[2022-10-28] MEDS: risperiDONE 0.25 MG TAB PO SCH (09:15)
[2022-10-28] MEDS: Aspirin 81 mg Enteric Coated Tablet PO SCH (09:16)
[2022-10-28] MEDS: Lidocaine 4% Patch TD SCH (09:16)
[2022-10-28] MEDS: Carbidopa/Levodopa 25-100 mg Tablet PO SCH (09:16)
[2022-10-28] MEDS: Famotidine 20 MG TAB PO SCH (09:16)
[2022-10-28] MEDS: NIFEdipine XL 30 MG TAB PO SCH (09:17)
[2022-10-28] MEDS: Losartan Potassium 50 MG TAB PO SCH (09:17)
[2022-10-28] MEDS: RESTASIS 0.05% EA EYE SCH (09:18)
[2022-10-28] MEDS: Polyethylene Glycol 3350 17 GM Packet PO SCH (09:18)
== END 2022-10-28 09:45 | disposition hospice, inpatient (51) | DRG 948 ==
LOC: NAV ACUTE 13:11
PROVIDERS: ADMIT Student in an Organized Health Care Education/Training Program; ATTEND Family Medicine
DX: R53.81 Other malaise (principal); I13.0 Hypertensive heart and chronic kidney disease with heart failure and stage 1 through stage 4 chronic kidney disease, or unspecified chronic kidney disease; I50.32 Chronic diastolic (congestive) heart failure; J96.11 Chronic respiratory failure with hypoxia; S72.92XD Unspecified fracture of left femur, subsequent encounter for closed fracture with routine healing; F03.90 Unspecified dementia, unspecified severity, without behavioral disturbance, psychotic disturbance, mood disturbance, and anxiety; I48.0 Paroxysmal atrial fibrillation; N18.32 Chronic kidney disease, stage 3b; Z51.5 Encounter for palliative care; D63.1 Anemia in chronic kidney disease; K58.2 Mixed irritable bowel syndrome; F41.1 Generalized anxiety disorder; M19.90 Unspecified osteoarthritis, unspecified site; J44.9 Chronic obstructive pulmonary disease, unspecified; G25.0 Essential tremor; K21.9 Gastro-esophageal reflux disease without esophagitis; D53.9 Nutritional anemia, unspecified; Z88.8 Allergy status to other drugs, medicaments and biological substances; Z88.6 Allergy status to analgesic agent; Z79.899 Other long term (current) drug therapy; Z79.82 Long term (current) use of aspirin; W18.30XD Fall on same level, unspecified, subsequent encounter
CPT/HCPCS: 36415; 80048; 83735; 83880; 84100; 85025; 85027; 94664; J1650